=== PATIENT | female | born 1960 | race Caucasian/White ===

== ENCOUNTER 2016-03-05 10:00 | Outpatient (CLI) | payer OTHER | END 2016-03-05 10:01 | disposition home or self-care (01) | DX: I48.91 Unspecified atrial fibrillation (principal); Z79.01 Long term (current) use of anticoagulants; I69.90 Unspecified sequelae of unspecified cerebrovascular disease ==

== ENCOUNTER 2016-03-27 10:16 | Outpatient (CLI) | payer OTHER | END 2016-03-27 10:17 | disposition home or self-care (01) | DX: Z12.31 Encounter for screening mammogram for malignant neoplasm of breast (principal); Z80.3 Family history of malignant neoplasm of breast; Z98.82 Breast implant status ==

== ENCOUNTER 2016-03-31 08:00 | Outpatient (CLI) | payer OTHER | END 2016-03-31 08:01 | DX: E24.9 Cushing's syndrome, unspecified (principal); D58.2 Other hemoglobinopathies; R71.8 Other abnormality of red blood cells; E03.9 Hypothyroidism, unspecified; Z79.899 Other long term (current) drug therapy ==

== ENCOUNTER 2016-04-16 09:14 | Outpatient (CLI) | payer OTHER | END 2016-04-16 09:15 | disposition home or self-care (01) | DX: I48.91 Unspecified atrial fibrillation (principal); I69.90 Unspecified sequelae of unspecified cerebrovascular disease; Z79.01 Long term (current) use of anticoagulants ==

== ENCOUNTER 2016-05-20 11:32 | Outpatient (CLI) | payer OTHER | END 2016-05-20 11:33 | disposition home or self-care (01) | DX: I48.91 Unspecified atrial fibrillation (principal); Z79.01 Long term (current) use of anticoagulants; I69.90 Unspecified sequelae of unspecified cerebrovascular disease ==

== ENCOUNTER 2016-06-18 09:33 | Outpatient (CLI) | payer OTHER | END 2016-06-18 09:34 | disposition home or self-care (01) | DX: M85.80 Other specified disorders of bone density and structure, unspecified site (principal); I48.91 Unspecified atrial fibrillation; Z79.01 Long term (current) use of anticoagulants; I69.90 Unspecified sequelae of unspecified cerebrovascular disease ==

== ENCOUNTER 2016-07-15 10:12 | Outpatient (CLI) | payer OTHER | END 2016-07-15 10:13 | disposition home or self-care (01) | LOC: LAB 10:12 | PROVIDERS: ATTEND Internal Medicine | DX: I48.91 Unspecified atrial fibrillation (principal) | CPT/HCPCS: 85610 ==

== ENCOUNTER 2016-07-20 21:49 | Emergency (ER) | payer OTHER ==
[2016-07-20] MEDS ORDERED: diphenhydrAMINE 25 MG CAPSULE PO STA (22:08)
[2016-07-20] MEDS ORDERED: predniSONE 20 MG TABLET PO STA (22:08)
--- NOTE | 2016-07-20 22:13 | ED Physician Documentation ---
PD HPI SKIN - Stated complaint Stated Complaint: POSS HORNET STING - Chief complaint Chief Complaint: Wound - History obtained from History obtained from: Patient - History of Present Illness Timing - onset: Other (Stung by a wasp or hornet to the dorsum of the left hand approximately 4 o'clock today at home with increasing redness and swelling throughout the left arm but no systemic symptoms, throat tightness, or wheezing. No prior history of anaphylaxis.) Review of Systems Constitutional: reports: Reviewed and negative Eyes: reports: Reviewed and negative Throat: reports: Reviewed and negative Cardiac: reports: Reviewed and negative PD PAST MEDICAL HISTORY - Past Medical History Past Medical History: Yes Cardiovascular: Atrial fibrillation - Past Surgical History Past Surgical History: No - Present Medications Home Medications: Ambulatory Orders Medication Instructions Recorded Confirmed Atenolol 12.5 mg PO DAILY 07/20/16 07/20/16 Warfarin Sodium [Coumadin] 1 tab PO DAILY 07/20/16 07/20/16 predniSONE [Deltasone] 60 mg PO DAILY 5 Days 07/20/16 - Allergies Allergies/Adverse Reactions: Allergies Allergy/AdvReac Type Severity Reaction Status Date / Time codeine AdvReac Nausea Verified 07/20/16 21:55 - Social History Does the pt smoke?: No Smoking Status: Never smoker Does the pt drink ETOH?: Yes ETOH Use: Wine Does the pt have substance abuse?: No - Immunizations Immunizations are current?: No Immunizations: TDAP >10years/unknown - POLST Patient has POLST: No PD ED PE NORMAL - Vitals Vital signs reviewed: Yes - General General: Alert and oriented X 3, No acute distress - HEENT HEENT: Pharynx benign - Extremities Extremities: Other (She is edema and swelling throughout the left arm emanating from the dorsum of the hand up to the elbow area without limited range of motion or tenderness.) - Neuro Neuro: Alert and oriented X 3, Normal speech - Psych Psych: Normal mood, Normal affect Results - Vitals Vitals: Vital Signs - 24 hr 07/20/16 21:56 Temperature 36.9 C Heart Rate 80 Respiratory 16 Rate Blood Pressure 141/83 H O2 Saturation 98 Oxygen O2 Source Room air PD MEDICAL DECISION MAKING - ED course ED course: She is a significant localized allergic reaction to Hymenoptera sting without evidence of anaphylaxis. She's treated with steroid and Benadryl. Departure - Departure Disposition: 01 Home, Self Care Clinical Impression: Toxic reaction to hornets, wasps and bees Qualifiers: Encounter type: initial encounter Injury intent: accidental or unintentional Qualified Code(s): T63.451A - Toxic effect of venom of hornets, accidental ( unintentional), initial encounter; T63.441A - Toxic effect of venom of bees, accidental (unintentional), initial encounter; T63.461A - Toxic effect of venom of wasps, accidental (unintentional), initial encounter Condition: Good Record reviewed to determine appropriate education?: Yes Instructions: ED Bite Sting Insect Local Allergic React Prescriptions: predniSONE [Deltasone] 60 mg PO DAILY 5 Days Comments: Use benadryl as needed as per package instructions return if worse Your blood pressure was elevated today on check in to the emergency department. This does not mean that you have hypertension, it is a common phenomenon to check into the emergency department and have elevated blood pressure. I recommend that you see your primary care physician within the week to have it rechecked when you're feeling better.
[2016-07-20] MEDS ORDERED: diphenhydrAMINE 25 MG CAPSULE PO ONE (22:14)
[2016-07-20] MEDS ORDERED: predniSONE 20 MG TABLET ONE (22:14)
[2016-07-20 22:42] VITALS: BP 135/79
== END 2016-07-20 22:36 | disposition home or self-care (01) ==
LOC: ED 21:49
DX: T63.451A Toxic effect of venom of hornets, accidental (unintentional), initial encounter (principal); Y92.009 Unspecified place in unspecified non-institutional (private) residence as the place of occurrence of the external cause; R03.0 Elevated blood-pressure reading, without diagnosis of hypertension; I48.91 Unspecified atrial fibrillation; Z79.01 Long term (current) use of anticoagulants
CPT/HCPCS: 99282; 99283; A9270; J7512

== ENCOUNTER 2016-07-22 07:43 | Outpatient (CLI) | payer OTHER | END 2016-07-22 07:44 | disposition home or self-care (01) | LOC: LAB.F 07:43 | PROVIDERS: ATTEND Internal Medicine | DX: I48.91 Unspecified atrial fibrillation (principal) | CPT/HCPCS: 85610 ==

== ENCOUNTER 2016-07-29 10:14 | Outpatient (CLI) | payer OTHER | END 2016-07-29 10:15 | disposition home or self-care (01) | LOC: LAB 10:14 | PROVIDERS: ATTEND Internal Medicine | DX: I48.91 Unspecified atrial fibrillation (principal) | CPT/HCPCS: 85610 ==

== ENCOUNTER 2016-08-04 14:33 | Outpatient (CLI) | payer OTHER | END 2016-08-04 14:34 | disposition home or self-care (01) | LOC: LAB.F 14:33 | PROVIDERS: ATTEND Internal Medicine | DX: I48.91 Unspecified atrial fibrillation (principal) | CPT/HCPCS: 85610 ==

== ENCOUNTER 2016-09-10 11:55 | Outpatient (CLI) | payer OTHER | END 2016-09-10 11:56 | disposition home or self-care (01) | LOC: LAB.F 11:55 | PROVIDERS: ATTEND Internal Medicine | DX: I48.91 Unspecified atrial fibrillation (principal) | CPT/HCPCS: 85610 ==

== ENCOUNTER 2016-10-10 13:48 | Outpatient (CLI) | payer OTHER | END 2016-10-10 13:49 | disposition home or self-care (01) | LOC: LAB.F 13:48 | PROVIDERS: ATTEND Internal Medicine | DX: I48.91 Unspecified atrial fibrillation (principal); M85.80 Other specified disorders of bone density and structure, unspecified site | CPT/HCPCS: 36415; 82306; 85610 ==

== ENCOUNTER → 2016-10-13 | Outpatient (CLI) | payer OTHER | LOC: LAB.F 08:00 | PROVIDERS: ATTEND Internal Medicine | DX: I48.91 Unspecified atrial fibrillation (principal); Z79.01 Long term (current) use of anticoagulants; I69.90 Unspecified sequelae of unspecified cerebrovascular disease | CPT/HCPCS: 85610 ==

== ENCOUNTER 2016-10-27 13:56 | Outpatient (CLI) | payer OTHER | END 2016-10-27 13:57 | disposition home or self-care (01) | LOC: LAB.F 13:56 | PROVIDERS: ATTEND Internal Medicine | DX: I48.91 Unspecified atrial fibrillation (principal); Z79.01 Long term (current) use of anticoagulants; I69.90 Unspecified sequelae of unspecified cerebrovascular disease | CPT/HCPCS: 36415; 84443; 84481; 85610 ==

== ENCOUNTER 2016-11-25 14:37 | Outpatient (CLI) | payer OTHER | END 2016-11-25 14:38 | disposition home or self-care (01) | LOC: LAB.F 14:37 | PROVIDERS: ATTEND Naturopath | DX: E03.9 Hypothyroidism, unspecified (principal); Z79.899 Other long term (current) drug therapy | CPT/HCPCS: 36415; 84443; 84481 ==

== ENCOUNTER 2016-12-02 14:11 | Outpatient (CLI) | payer OTHER ==
[2016-12-02 18:12] LABS: PT - PROTHROMBIN TIME 51.9 secs (9.9-12.6)
[2016-12-02 18:38] LABS: INR 4.5 (0.8-1.2)
== END 2016-12-02 14:12 | disposition home or self-care (01) ==
LOC: LAB.F 14:11
PROVIDERS: ATTEND Internal Medicine
DX: I48.91 Unspecified atrial fibrillation (principal); Z79.01 Long term (current) use of anticoagulants; I69.90 Unspecified sequelae of unspecified cerebrovascular disease
CPT/HCPCS: 36415; 85610

== ENCOUNTER 2016-12-08 10:54 | Outpatient (CLI) | payer OTHER | END 2016-12-08 10:55 | disposition home or self-care (01) | LOC: LAB.F 10:54 | PROVIDERS: ATTEND Internal Medicine | DX: I48.91 Unspecified atrial fibrillation (principal); Z79.01 Long term (current) use of anticoagulants; I69.90 Unspecified sequelae of unspecified cerebrovascular disease | CPT/HCPCS: 85610 ==

== ENCOUNTER 2016-12-15 07:50 | Outpatient (CLI) | payer OTHER | END 2016-12-15 07:51 | disposition home or self-care (01) | LOC: LAB.F 07:50 | PROVIDERS: ATTEND Internal Medicine | DX: I48.91 Unspecified atrial fibrillation (principal); Z79.01 Long term (current) use of anticoagulants; I69.90 Unspecified sequelae of unspecified cerebrovascular disease | CPT/HCPCS: 85610 ==

== ENCOUNTER 2016-12-30 08:53 | Outpatient (CLI) | payer OTHER | END 2016-12-30 08:54 | disposition home or self-care (01) | LOC: LAB.F 08:53 | PROVIDERS: ATTEND Internal Medicine | DX: I48.91 Unspecified atrial fibrillation (principal); Z79.01 Long term (current) use of anticoagulants; I69.90 Unspecified sequelae of unspecified cerebrovascular disease | CPT/HCPCS: 85610 ==

== ENCOUNTER 2017-01-14 10:09 | Outpatient (CLI) | payer OTHER | END 2017-01-14 10:10 | disposition home or self-care (01) | LOC: LAB 10:09 | PROVIDERS: ATTEND Internal Medicine | DX: I48.91 Unspecified atrial fibrillation (principal); Z79.01 Long term (current) use of anticoagulants; I69.90 Unspecified sequelae of unspecified cerebrovascular disease | CPT/HCPCS: 85610 ==

== ENCOUNTER 2017-02-06 08:00 | Outpatient (CLI) | payer OTHER | END 2017-02-06 08:01 | disposition home or self-care (01) | LOC: LAB.F 08:00 | PROVIDERS: ATTEND Internal Medicine | DX: I48.91 Unspecified atrial fibrillation (principal); Z79.01 Long term (current) use of anticoagulants; I69.90 Unspecified sequelae of unspecified cerebrovascular disease | CPT/HCPCS: 85610 ==

== ENCOUNTER 2017-02-27 09:23 | Outpatient (CLI) | payer BC, OTHER | END 2017-02-27 09:24 | disposition home or self-care (01) | LOC: LAB 09:23 | PROVIDERS: ATTEND Internal Medicine | DX: I48.91 Unspecified atrial fibrillation (principal); Z79.01 Long term (current) use of anticoagulants; I69.90 Unspecified sequelae of unspecified cerebrovascular disease | CPT/HCPCS: 85610 ==

== ENCOUNTER 2017-03-02 16:39 | Outpatient (CLI) | payer BC ==
--- NOTE | 2017-03-03 10:31 | XRAY Report ---
DATE OF SERVICE: 03/02/2017 LEFT HIP AND PELVIS: 03/02/2017 CLINICAL INDICATION: Pain. FINDINGS: Frontal view of the hips and pelvis and frogleg lateral view of the left hip demonstrate mild left hip osteoarthritis. There is no evidence of acute fracture or dislocation. No radiopaque foreign body is seen in the soft tissues. IMPRESSION: Mild left hip osteoarthritis. TD: 03/03/2017 11:30
--- NOTE | 2017-03-03 10:32 | XRAY Report ---
DATE OF SERVICE: 03/02/2017 THREE-VIEW LUMBAR SPINE: 03/02/2017 CLINICAL INDICATION: Pain. FINDINGS: AP, lateral, coned-down views of the lumbar spine demonstrate moderate degenerative disk and facet disease. Disk space narrowing is worst at L3-L4. There is no evidence of compression fracture or subluxation. IMPRESSION: Moderate degenerative changes, worst at L3-4. TD: 03/03/2017 11:31
== END 2017-03-02 16:40 | disposition home or self-care (01) ==
LOC: DI 16:39
PROVIDERS: ATTEND Physician Assistant Medical
DX: M51.36 Other intervertebral disc degeneration, lumbar region (principal); M47.896 Other spondylosis, lumbar region; M16.12 Unilateral primary osteoarthritis, left hip
CPT/HCPCS: 72100

== ENCOUNTER 2017-03-12 15:34 | Outpatient (CLI) | payer BC | END 2017-03-12 15:35 | disposition home or self-care (01) | LOC: LAB.F 15:34 | PROVIDERS: ATTEND Internal Medicine | DX: I48.91 Unspecified atrial fibrillation (principal); Z79.01 Long term (current) use of anticoagulants; I69.90 Unspecified sequelae of unspecified cerebrovascular disease | CPT/HCPCS: 85610 ==

== ENCOUNTER 2017-03-25 10:35 | Outpatient (CLI) | payer BC | END 2017-03-25 10:36 | disposition home or self-care (01) | LOC: LAB.F 10:35 | PROVIDERS: ATTEND Internal Medicine | DX: I48.91 Unspecified atrial fibrillation (principal); Z79.01 Long term (current) use of anticoagulants; I69.90 Unspecified sequelae of unspecified cerebrovascular disease | CPT/HCPCS: 85610 ==

== ENCOUNTER 2017-04-01 10:58 | Outpatient (CLI) | payer BC | END 2017-04-01 10:59 | disposition home or self-care (01) | LOC: LAB.F 10:58 | PROVIDERS: ATTEND Internal Medicine | DX: I48.91 Unspecified atrial fibrillation (principal); I69.90 Unspecified sequelae of unspecified cerebrovascular disease; Z79.01 Long term (current) use of anticoagulants | CPT/HCPCS: 85610 ==

== ENCOUNTER 2017-04-08 10:55 | Outpatient (CLI) | payer BC | END 2017-04-08 10:56 | disposition home or self-care (01) | LOC: LAB.F 10:55 | PROVIDERS: ATTEND Internal Medicine | DX: I48.91 Unspecified atrial fibrillation (principal); Z79.01 Long term (current) use of anticoagulants; I69.90 Unspecified sequelae of unspecified cerebrovascular disease | CPT/HCPCS: 85610 ==

== ENCOUNTER 2017-04-16 14:53 | Outpatient (CLI) | payer BC | END 2017-04-16 14:54 | disposition home or self-care (01) | LOC: LAB.F 14:53 | PROVIDERS: ATTEND Internal Medicine | DX: I48.91 Unspecified atrial fibrillation (principal); Z79.01 Long term (current) use of anticoagulants; I69.90 Unspecified sequelae of unspecified cerebrovascular disease | CPT/HCPCS: 85610 ==

== ENCOUNTER 2017-04-29 10:16 | Outpatient (CLI) | payer BC | END 2017-04-29 10:17 | disposition home or self-care (01) | LOC: LAB 10:16 | PROVIDERS: ATTEND Internal Medicine | DX: I48.91 Unspecified atrial fibrillation (principal); I69.90 Unspecified sequelae of unspecified cerebrovascular disease; Z79.01 Long term (current) use of anticoagulants | CPT/HCPCS: 85610 ==

== ENCOUNTER 2017-05-12 15:20 | Outpatient (CLI) | payer BC | END 2017-05-12 15:21 | disposition home or self-care (01) | LOC: LAB.F 15:20 | PROVIDERS: ATTEND Internal Medicine | DX: I48.91 Unspecified atrial fibrillation (principal); I69.90 Unspecified sequelae of unspecified cerebrovascular disease; Z79.01 Long term (current) use of anticoagulants | CPT/HCPCS: 85610 ==

== ENCOUNTER 2017-05-25 08:00 | Outpatient (CLI) | payer BC | END 2017-05-25 08:01 | LOC: LAB.F 08:00 | PROVIDERS: ATTEND Internal Medicine | DX: I48.91 Unspecified atrial fibrillation (principal); Z79.01 Long term (current) use of anticoagulants; I69.90 Unspecified sequelae of unspecified cerebrovascular disease | CPT/HCPCS: 85610 ==

== ENCOUNTER 2017-06-09 12:10 | Outpatient (CLI) | payer BC | END 2017-06-09 12:11 | disposition home or self-care (01) | LOC: LAB.F 12:10 | PROVIDERS: ATTEND Internal Medicine | DX: I48.91 Unspecified atrial fibrillation (principal); Z79.01 Long term (current) use of anticoagulants; I69.90 Unspecified sequelae of unspecified cerebrovascular disease | CPT/HCPCS: 85610 ==

== ENCOUNTER 2017-06-17 10:34 | Outpatient (CLI) | payer BC | END 2017-06-17 10:35 | disposition home or self-care (01) | LOC: LAB.F 10:34 | PROVIDERS: ATTEND Internal Medicine | DX: I48.91 Unspecified atrial fibrillation (principal); Z79.01 Long term (current) use of anticoagulants; I69.90 Unspecified sequelae of unspecified cerebrovascular disease | CPT/HCPCS: 85610 ==

== ENCOUNTER 2017-07-01 14:56 | Outpatient (CLI) | payer BC ==
[2017-07-01 17:53] LABS: ALT ALANINE AMINOTRANSFERASE 19 IU/L (10-60); AST ASPARTATE AMINOTRANSFERASE 19 IU/L (10-42)
== END 2017-07-01 14:57 | disposition home or self-care (01) ==
LOC: LAB.F 14:56
PROVIDERS: ATTEND Naturopath
DX: I48.91 Unspecified atrial fibrillation (principal); Z79.01 Long term (current) use of anticoagulants; I69.90 Unspecified sequelae of unspecified cerebrovascular disease; M85.80 Other specified disorders of bone density and structure, unspecified site; E03.9 Hypothyroidism, unspecified; Z79.899 Other long term (current) drug therapy
CPT/HCPCS: 36415; 82306; 84443; 84450; 84460; 84481; 85610

== ENCOUNTER 2017-07-10 14:16 | Outpatient (CLI) | payer BC | END 2017-07-10 14:17 | disposition home or self-care (01) | LOC: LAB.F 14:16 | PROVIDERS: ATTEND Internal Medicine | DX: I48.91 Unspecified atrial fibrillation (principal); I69.90 Unspecified sequelae of unspecified cerebrovascular disease; Z79.01 Long term (current) use of anticoagulants | CPT/HCPCS: 85610 ==

== ENCOUNTER 2017-07-20 13:15 | Outpatient (CLI) | payer BC | END 2017-07-20 13:16 | disposition home or self-care (01) | LOC: LAB.F 13:15 | PROVIDERS: ATTEND Internal Medicine | DX: I48.91 Unspecified atrial fibrillation (principal); I69.90 Unspecified sequelae of unspecified cerebrovascular disease; Z79.01 Long term (current) use of anticoagulants | CPT/HCPCS: 85610 ==

== ENCOUNTER 2017-08-04 09:10 | Outpatient (CLI) | payer BC | END 2017-08-04 09:11 | disposition home or self-care (01) | LOC: LAB.F 09:10 | PROVIDERS: ATTEND Internal Medicine | DX: I48.91 Unspecified atrial fibrillation (principal); Z79.01 Long term (current) use of anticoagulants; I69.90 Unspecified sequelae of unspecified cerebrovascular disease | CPT/HCPCS: 85610 ==

== ENCOUNTER 2017-09-15 09:49 | Outpatient (CLI) | payer BC | END 2017-09-15 09:50 | disposition home or self-care (01) | LOC: LAB.F 09:49 | PROVIDERS: ATTEND Internal Medicine | DX: I48.91 Unspecified atrial fibrillation (principal); Z79.01 Long term (current) use of anticoagulants; I69.90 Unspecified sequelae of unspecified cerebrovascular disease | CPT/HCPCS: 85610 ==

== ENCOUNTER 2017-09-29 10:10 | Outpatient (CLI) | payer BC | END 2017-09-29 10:11 | disposition home or self-care (01) | LOC: LAB.F 10:10 | PROVIDERS: ATTEND Internal Medicine | DX: I48.91 Unspecified atrial fibrillation (principal); Z79.01 Long term (current) use of anticoagulants; I69.90 Unspecified sequelae of unspecified cerebrovascular disease | CPT/HCPCS: 85610 ==

== ENCOUNTER 2017-09-30 08:17 | Outpatient (CLI) | payer BC ==
--- NOTE | 2017-09-30 10:59 | Ultrasound Report ---
Procedure Date: 09/30/2017 Accession Number: [id number] / [id number] Procedure: US - Pelvic w/Transvaginal CPT Code: FULL RESULT: EXAM: PELVIC ULTRASOUND EXAM DATE: 09/30/2017 09:45 AM. CLINICAL HISTORY: History of ovarian cyst. COMPARISON: None. TECHNIQUE: Realtime transabdominal pelvic scan performed to identify the uterus and adnexa and as an overview of other pelvic structures, followed by transvaginal scan to provide greater detail of the uterus and adnexa, with static image documentation. FINDINGS: Uterus: 5.8 x 3.1 x 2.4 cm, volume 23 cc. Anteverted position. Normal overall size and echotexture. Masses: None. Endometrium: 2 mm. Normal. Cervix: Subcentimeter nabothian cysts. Right Ovary: 4.4 x 2.4 x 2.8 cm, volume 15 cc. Preserved blood flow by color Doppler. Simple appearing cyst measuring 3.1 x 2.5 x 2.5 cm. Left Ovary: 2.2 x 2.6 x 1.7 cm, volume 5 cc. Simple appearing cyst measures 1.2 x 0.8 x 0.7 cm. Free Fluid: None. Other: None. IMPRESSION: Bilateral adnexal cyst in the postmenopausal patient measuring up to 3.1 cm. Recommend annual follow-up ultrasound to resolution. RADIA
== END 2017-09-30 08:18 | disposition home or self-care (01) ==
LOC: DI 08:17
PROVIDERS: ATTEND Physician Assistant Medical
DX: N83.292 Other ovarian cyst, left side (principal); N83.291 Other ovarian cyst, right side
CPT/HCPCS: 76830; 76856

== ENCOUNTER 2017-10-13 14:04 | Outpatient (CLI) | payer BC | END 2017-10-13 14:05 | disposition home or self-care (01) | LOC: LAB.F 14:04 | PROVIDERS: ATTEND Internal Medicine | DX: I48.91 Unspecified atrial fibrillation (principal); Z79.01 Long term (current) use of anticoagulants; I69.90 Unspecified sequelae of unspecified cerebrovascular disease | CPT/HCPCS: 85610 ==

== ENCOUNTER 2017-11-19 08:00 | Outpatient (CLI) | payer BC ==
[2017-11-19 10:36] LABS: BASOPHILS % (AUTO) 1.3 %; EOSINOPHILS # (AUTO) 0.1 10^3/uL (0.0-0.7); EOSINOPHILS % (AUTO) 2.5 %; LYMPHOCYTES # (AUTO) 1.2 10^3/uL (1.5-3.5); LYMPHOCYTES % (AUTO) 30.2 %; MEAN CORPUSCULAR HEMOGLOBIN 31.6 pg (27.0-31.0); MEAN CORPUSCULAR HGB CONC 34.3 g/dL (32.0-36.0); MEAN CORPUSCULAR VOLUME 92.2 fL (81.0-99.0); MEAN PLATELET VOLUME 8.9 fL (7.9-10.8); MONOCYTES # (AUTO) 0.4 10^3/uL (0.0-1.0); MONOCYTES % (AUTO) 9.7 %; NEUTROPHILS # (AUTO) 2.2 10^3/uL (1.5-6.6); NEUTROPHILS % (AUTO) 56.3 %; PLT - PLATELET COUNT 223 10^3/uL (130-450); RED BLOOD COUNT 4.73 10^6/uL (4.20-5.40); RED CELL DISTRIBUTION WIDTH 13.3 % (12.0-15.0); WHITE BLOOD COUNT 3.8 x10^3/uL (4.8-10.8)
[2017-11-19 10:54] LABS: ALBUMIN 4.5 g/dL (3.2-5.5); ALKALINE PHOSPHATASE 73 IU/L (42-121); ALT ALANINE AMINOTRANSFERASE 19 IU/L (10-60); AST ASPARTATE AMINOTRANSFERASE 20 IU/L (10-42); BILIRUBIN,TOTAL 0.8 mg/dL (0.2-1.0); BUN - BLOOD UREA NITROGEN 9 mg/dL (6-20); CALCIUM 9.3 mg/dL (8.5-10.3); CARBON DIOXIDE - CO2 27 mmol/L (21-32); CHLORIDE 103 mmol/L (101-111); CHOL/HDL RATIO 1.8 (<4.4); CHOLESTEROL 140 mg/dL; CREATININE 0.7 mg/dL (0.4-1.0); GFR - MDRD 86 (>89); GLUCOSE 93 mg/dL (70-100); HDL CHOLESTEROL 77 mg/dL; SODIUM 139 mmol/L (135-145); TOTAL PROTEIN 6.8 g/dL (6.7-8.2)
[2017-11-19 11:39] LABS: LDL CHOLESTEROL,DIRECT 50 mg/dL; LDLD/HDL RATIO 0.6 (<4.4)
== END 2017-11-19 08:01 | disposition home or self-care (01) ==
LOC: LAB.F 08:00
PROVIDERS: ATTEND Physician Assistant Medical
DX: Z79.899 Other long term (current) drug therapy (principal); I48.91 Unspecified atrial fibrillation
CPT/HCPCS: 36415; 80053; 80061; 83721; 85025

== ENCOUNTER 2017-11-25 09:52 | Outpatient (CLI) | payer BC | END 2017-11-25 09:53 | disposition home or self-care (01) | LOC: LAB 09:52 | PROVIDERS: ATTEND Internal Medicine | DX: I48.91 Unspecified atrial fibrillation (principal); Z79.01 Long term (current) use of anticoagulants; I69.90 Unspecified sequelae of unspecified cerebrovascular disease | CPT/HCPCS: 85610 ==

== ENCOUNTER 2018-01-14 10:55 | Outpatient (CLI) | payer BC | END 2018-01-14 10:56 | disposition home or self-care (01) | LOC: LAB.F 10:55 | PROVIDERS: ATTEND Naturopath | DX: E03.9 Hypothyroidism, unspecified (principal); M85.80 Other specified disorders of bone density and structure, unspecified site | CPT/HCPCS: 36415; 82306; 84443; 84481 ==

== ENCOUNTER 2018-01-26 10:13 | Outpatient (CLI) | payer BC | END 2018-01-26 10:14 | disposition home or self-care (01) | LOC: LAB.F 10:13 | PROVIDERS: ATTEND Internal Medicine | DX: I48.91 Unspecified atrial fibrillation (principal); Z79.01 Long term (current) use of anticoagulants; I69.90 Unspecified sequelae of unspecified cerebrovascular disease | CPT/HCPCS: 85610 ==

== ENCOUNTER 2018-02-25 10:09 | Outpatient (CLI) | payer BC ==
[2018-02-25 10:27] LABS: BASOPHILS % (AUTO) 0.9 %; EOSINOPHILS # (AUTO) 0.1 10^3/uL (0.0-0.7); EOSINOPHILS % (AUTO) 2.4 %; HGB - HEMOGLOBIN 14.9 g/dL (12.0-16.0); LYMPHOCYTES # (AUTO) 1.2 10^3/uL (1.5-3.5); LYMPHOCYTES % (AUTO) 23.8 %; MEAN CORPUSCULAR HEMOGLOBIN 31.7 pg (27.0-31.0); MEAN CORPUSCULAR HGB CONC 34.3 g/dL (32.0-36.0); MEAN CORPUSCULAR VOLUME 92.6 fL (81.0-99.0); MEAN PLATELET VOLUME 8.4 fL (7.9-10.8); MONOCYTES # (AUTO) 0.4 10^3/uL (0.0-1.0); NEUTROPHILS # (AUTO) 3.4 10^3/uL (1.5-6.6); NEUTROPHILS % (AUTO) 64.9 %; PLT - PLATELET COUNT 228 10^3/uL (130-450); RED BLOOD COUNT 4.68 10^6/uL (4.20-5.40); RED CELL DISTRIBUTION WIDTH 12.9 % (12.0-15.0); WHITE BLOOD COUNT 5.2 x10^3/uL (4.8-10.8)
[2018-02-26 12:28] LABS: HEPATITIS C ANTIBODY NON-REACTIVE (NON-REACTIVE)
== END 2018-02-25 10:10 | disposition home or self-care (01) ==
LOC: LAB 10:09
PROVIDERS: ATTEND Physician Assistant Medical
DX: R68.89 Other general symptoms and signs (principal); Z72.89 Other problems related to lifestyle; I48.91 Unspecified atrial fibrillation; Z79.01 Long term (current) use of anticoagulants; I69.90 Unspecified sequelae of unspecified cerebrovascular disease
CPT/HCPCS: 36415; 85025; 85610; 86803

== ENCOUNTER 2018-03-25 13:41 | Outpatient (CLI) | payer BC | END 2018-03-25 13:42 | disposition home or self-care (01) | LOC: LAB.F 13:41 | PROVIDERS: ATTEND Internal Medicine | DX: I48.91 Unspecified atrial fibrillation (principal); Z79.01 Long term (current) use of anticoagulants; I69.90 Unspecified sequelae of unspecified cerebrovascular disease | CPT/HCPCS: 36415; 85610 ==

== ENCOUNTER 2018-05-06 14:33 | Outpatient (CLI) | payer BC | END 2018-05-06 14:34 | disposition home or self-care (01) | LOC: LAB.F 14:33 | PROVIDERS: ATTEND Internal Medicine | DX: I48.91 Unspecified atrial fibrillation (principal); Z79.01 Long term (current) use of anticoagulants | CPT/HCPCS: 85610 ==

== ENCOUNTER 2018-05-20 08:00 | Outpatient (CLI) | payer BC | END 2018-05-20 23:59 | disposition home or self-care (01) | LOC: LAB.F 08:00 | PROVIDERS: ATTEND Naturopath | DX: E03.9 Hypothyroidism, unspecified (principal) | CPT/HCPCS: 36415; 84443; 84481 ==

== ENCOUNTER 2018-06-07 10:31 | Outpatient (CLI) | payer BC | END 2018-06-07 10:32 | disposition home or self-care (01) | LOC: LAB.F 10:31 | PROVIDERS: ATTEND Internal Medicine | DX: I48.91 Unspecified atrial fibrillation (principal); Z79.01 Long term (current) use of anticoagulants | CPT/HCPCS: 85610 ==

== ENCOUNTER 2018-08-04 11:06 | Outpatient (CLI) | payer BC | END 2018-08-04 11:07 | disposition home or self-care (01) | LOC: LAB 11:06 | PROVIDERS: ATTEND Internal Medicine | DX: I48.91 Unspecified atrial fibrillation (principal); Z79.01 Long term (current) use of anticoagulants | CPT/HCPCS: 85610 ==

== ENCOUNTER 2018-08-10 14:08 | Outpatient (CLI) | payer BC | END 2018-08-10 14:09 | disposition home or self-care (01) | LOC: LAB.F 14:08 | PROVIDERS: ATTEND Internal Medicine | DX: I48.91 Unspecified atrial fibrillation (principal); Z79.01 Long term (current) use of anticoagulants | CPT/HCPCS: 85610 ==

== ENCOUNTER 2018-08-16 11:00 | Outpatient (CLI) | payer BC | END 2018-08-16 11:01 | disposition home or self-care (01) | LOC: LAB.S 11:00 | PROVIDERS: ATTEND Internal Medicine | DX: I48.91 Unspecified atrial fibrillation (principal); Z79.01 Long term (current) use of anticoagulants | CPT/HCPCS: 85610 ==

== ENCOUNTER 2018-08-23 10:41 | Outpatient (CLI) | payer BC | END 2018-08-23 10:42 | disposition home or self-care (01) | LOC: LAB.S 10:41 | PROVIDERS: ATTEND Internal Medicine | DX: I48.91 Unspecified atrial fibrillation (principal); Z79.01 Long term (current) use of anticoagulants | CPT/HCPCS: 85610 ==

== ENCOUNTER 2018-08-30 10:24 | Outpatient (CLI) | payer BC | END 2018-08-30 10:25 | disposition home or self-care (01) | LOC: LAB.S 10:24 | PROVIDERS: ATTEND Internal Medicine | DX: I48.91 Unspecified atrial fibrillation (principal); Z79.01 Long term (current) use of anticoagulants | CPT/HCPCS: 85610 ==

== ENCOUNTER 2018-09-17 | Outpatient (CLI) | payer BC | END 2018-09-17 11:00 | disposition home or self-care (01) ==

== ENCOUNTER 2018-09-24 14:00 | Outpatient (CLI) | payer BC | END 2018-09-24 14:01 | disposition home or self-care (01) | LOC: LAB.S 14:00 | PROVIDERS: ATTEND Internal Medicine | DX: Z79.01 Long term (current) use of anticoagulants (principal); I48.91 Unspecified atrial fibrillation | CPT/HCPCS: 85610 ==

== ENCOUNTER 2018-09-30 07:57 | Outpatient (CLI) | payer BC | END 2018-09-30 07:58 | disposition home or self-care (01) | LOC: LAB.S 07:57 | DX: E03.9 Hypothyroidism, unspecified (principal) | CPT/HCPCS: 36415; 84443; 84481 ==

== ENCOUNTER 2018-10-01 07:30 | Outpatient (CLI) | payer BC ==
--- NOTE | 2018-10-01 14:45 | Ultrasound Report ---
Reason: OTHER OVARIAN CYST, UNSPECIFIED SIDE Procedure Date: 10/01/2018 Accession Number: [id number] / [id number] Procedure: US - Pelvic w/Transvaginal CPT Code: FULL RESULT: EXAM: PELVIC ULTRASOUND EXAM DATE: 10/01/2018 08:31 AM. CLINICAL HISTORY: Follow-up bilateral ovarian cystic lesions, postmenopausal. COMPARISON: PELVIC W/TRANSVAGINAL 09/30/2017 8:33 AM. TECHNIQUE: Realtime transabdominal pelvic scan performed to identify the uterus and adnexa and as an overview of other pelvic structures, followed by transvaginal scan to provide greater detail of the uterus and adnexa, with static image documentation. FINDINGS: Uterus: 5.5 x 2.6 x 3.3 cm, volume 25 cc. Anteverted position. Normal overall size and echotexture. Masses: None. Endometrium: 2 mm. Normal. Cervix: Cervical nabothian cysts measure up to 1.0 cm. Right Ovary: 3.3 x 2.8 x 3.2 cm, volume 15.5 cc. A simple cyst measures 2.9 x 2.9 x 2.8 cm. Previously measured 3.1 cm unchanged. No evidence for torsion. Left Ovary: 2.9 x 1.5 x 2.0 cm, volume 4.6 cc. A small simple cyst measures 1.3 x 0.9 x 0.9 cm. Previously measured 1.2 cm unchanged. No evidence for torsion. Free Fluid: None. Other: None. IMPRESSION: 1. Bilateral simple ovarian cysts measuring 2.9 cm on the right and 1.3 cm on the left, unchanged. 2. Normal endometrium. RADIA
== END 2018-10-01 07:31 | disposition home or self-care (01) ==
LOC: DI 07:30
PROVIDERS: ATTEND Internal Medicine
DX: N83.292 Other ovarian cyst, left side (principal); N83.291 Other ovarian cyst, right side; I48.91 Unspecified atrial fibrillation; Z79.01 Long term (current) use of anticoagulants
CPT/HCPCS: 76830; 76856; 85610

== ENCOUNTER 2018-10-13 12:37 | Outpatient (CLI) | payer BC | END 2018-10-13 23:59 | disposition home or self-care (01) | LOC: LAB.N 12:37 | PROVIDERS: ATTEND Internal Medicine | DX: I48.91 Unspecified atrial fibrillation (principal); Z79.01 Long term (current) use of anticoagulants | CPT/HCPCS: 85610 ==

== ENCOUNTER 2018-10-29 13:29 | Outpatient (CLI) | payer BC | END 2018-10-29 13:30 | disposition home or self-care (01) | LOC: LAB.S 13:29 | PROVIDERS: ATTEND Internal Medicine | DX: Z79.01 Long term (current) use of anticoagulants (principal); I48.91 Unspecified atrial fibrillation | CPT/HCPCS: 85610 ==

== ENCOUNTER 2018-11-04 11:11 | Outpatient (CLI) | payer BC | END 2018-11-04 11:12 | disposition home or self-care (01) | LOC: LAB.S 11:11 | PROVIDERS: ATTEND Internal Medicine | DX: Z79.01 Long term (current) use of anticoagulants (principal); I48.91 Unspecified atrial fibrillation | CPT/HCPCS: 85610 ==

== ENCOUNTER 2018-11-18 11:04 | Outpatient (CLI) | payer BC | END 2018-11-18 11:05 | disposition home or self-care (01) | LOC: LAB.S 11:04 | PROVIDERS: ATTEND Internal Medicine | DX: I48.91 Unspecified atrial fibrillation (principal); Z79.01 Long term (current) use of anticoagulants | CPT/HCPCS: 85610 ==

== ENCOUNTER 2018-11-25 10:49 | Outpatient (CLI) | payer BC | END 2018-11-25 10:50 | disposition home or self-care (01) | LOC: LAB.S 10:49 | PROVIDERS: ATTEND Internal Medicine | DX: Z79.01 Long term (current) use of anticoagulants (principal); I48.91 Unspecified atrial fibrillation | CPT/HCPCS: 85610 ==

== ENCOUNTER 2018-12-02 11:24 | Outpatient (CLI) | payer BC | END 2018-12-02 11:25 | disposition home or self-care (01) | LOC: LAB.S 11:24 | PROVIDERS: ATTEND Internal Medicine | DX: Z79.01 Long term (current) use of anticoagulants (principal); I48.91 Unspecified atrial fibrillation | CPT/HCPCS: 85610 ==

== ENCOUNTER 2018-12-09 07:51 | Outpatient (CLI) | payer BC | END 2018-12-09 07:52 | disposition home or self-care (01) | LOC: LAB.S 07:51 | PROVIDERS: ATTEND Internal Medicine | DX: Z79.01 Long term (current) use of anticoagulants (principal); I48.91 Unspecified atrial fibrillation | CPT/HCPCS: 85610 ==

== ENCOUNTER 2018-12-16 11:43 | Outpatient (CLI) | payer BC | END 2018-12-16 11:44 | disposition home or self-care (01) | LOC: LAB.S 11:43 | PROVIDERS: ATTEND Internal Medicine | DX: Z79.01 Long term (current) use of anticoagulants (principal); I48.91 Unspecified atrial fibrillation | CPT/HCPCS: 85610 ==

== ENCOUNTER 2019-01-05 13:39 | Outpatient (CLI) | payer BC | END 2019-01-05 13:40 | disposition home or self-care (01) | LOC: LAB.S 13:39 | PROVIDERS: ATTEND Internal Medicine | DX: Z79.01 Long term (current) use of anticoagulants (principal); I48.91 Unspecified atrial fibrillation | CPT/HCPCS: 85610 ==

== ENCOUNTER 2019-01-12 07:58 | Outpatient (CLI) | payer BC | END 2019-01-12 07:59 | disposition home or self-care (01) | LOC: LAB.S 07:58 | PROVIDERS: ATTEND Internal Medicine | DX: I48.91 Unspecified atrial fibrillation (principal); Z79.01 Long term (current) use of anticoagulants | CPT/HCPCS: 85610 ==

== ENCOUNTER 2019-01-20 07:44 | Outpatient (CLI) | payer BC | END 2019-01-20 07:45 | disposition home or self-care (01) | LOC: LAB.S 07:44 | PROVIDERS: ATTEND Internal Medicine | DX: Z79.01 Long term (current) use of anticoagulants (principal); I48.91 Unspecified atrial fibrillation | CPT/HCPCS: 85610 ==

== ENCOUNTER 2019-02-04 10:41 | Outpatient (CLI) | payer BC | END 2019-02-04 10:42 | disposition home or self-care (01) | LOC: LAB.S 10:41 | PROVIDERS: ATTEND Internal Medicine | DX: Z79.01 Long term (current) use of anticoagulants (principal); I48.91 Unspecified atrial fibrillation | CPT/HCPCS: 85610 ==

== ENCOUNTER 2019-02-14 09:09 | Outpatient (CLI) | payer BC | END 2019-02-14 09:10 | disposition home or self-care (01) | LOC: LAB.S 09:09 | PROVIDERS: ATTEND Internal Medicine | DX: Z79.01 Long term (current) use of anticoagulants (principal); I48.91 Unspecified atrial fibrillation | CPT/HCPCS: 85610 ==

== ENCOUNTER 2019-02-21 15:08 | Outpatient (CLI) | payer BC | END 2019-02-21 15:09 | disposition home or self-care (01) | LOC: LAB.S 15:08 | PROVIDERS: ATTEND Internal Medicine | DX: Z79.01 Long term (current) use of anticoagulants (principal); I48.91 Unspecified atrial fibrillation | CPT/HCPCS: 85610 ==

== ENCOUNTER 2019-02-28 13:27 | Outpatient (CLI) | payer BC | END 2019-02-28 13:28 | disposition home or self-care (01) | LOC: LAB.S 13:27 | PROVIDERS: ATTEND Internal Medicine | DX: Z79.01 Long term (current) use of anticoagulants (principal); I48.91 Unspecified atrial fibrillation | CPT/HCPCS: 85610 ==

== ENCOUNTER 2019-03-07 15:26 | Outpatient (CLI) | payer BC | END 2019-03-07 15:27 | disposition home or self-care (01) | LOC: LAB.S 15:26 | PROVIDERS: ATTEND Internal Medicine | DX: Z79.01 Long term (current) use of anticoagulants (principal); I48.91 Unspecified atrial fibrillation | CPT/HCPCS: 85610 ==

== ENCOUNTER 2019-03-14 15:32 | Outpatient (CLI) | payer BC | END 2019-03-14 15:33 | disposition home or self-care (01) | LOC: LAB.S 15:32 | PROVIDERS: ATTEND Internal Medicine | DX: Z79.01 Long term (current) use of anticoagulants (principal); I48.91 Unspecified atrial fibrillation | CPT/HCPCS: 85610 ==

== ENCOUNTER 2019-03-28 12:56 | Outpatient (CLI) | payer BC | END 2019-03-28 12:57 | disposition home or self-care (01) | LOC: LAB.S 12:56 | PROVIDERS: ATTEND Internal Medicine | DX: Z79.01 Long term (current) use of anticoagulants (principal); I48.91 Unspecified atrial fibrillation | CPT/HCPCS: 85610 ==

== ENCOUNTER 2019-04-01 13:19 | Outpatient (CLI) | payer BC ==
[~2019-04-01 13:19] MED LIST: ALBUTEROL NEB 2.5 MG/3 ML INH SCH
== END 2019-04-01 13:20 | disposition home or self-care (01) ==
LOC: RT 13:19
PROVIDERS: ATTEND Nurse Practitioner Family
DX: R06.00 Dyspnea, unspecified (principal)
CPT/HCPCS: 94060

== ENCOUNTER 2019-04-22 13:29 | Outpatient (CLI) | payer BC | END 2019-04-22 13:30 | disposition home or self-care (01) | LOC: LAB.S 13:29 | PROVIDERS: ATTEND Internal Medicine | DX: I48.91 Unspecified atrial fibrillation (principal); Z79.01 Long term (current) use of anticoagulants | CPT/HCPCS: 85610 ==

== ENCOUNTER 2019-05-23 15:48 | Outpatient (CLI) | payer BC ==
[2019-05-23 16:32] LABS: THYROID STIMULATING HORMONE 1.01 uIU/mL (0.34-5.60)
[2019-05-23 16:33] LABS: FREE T3 2.57 pg/mL (2.5-3.9)
[2019-05-23 16:34] LABS: FREE T4 (FREE THYROXINE) 0.92 ng/dL (0.58-1.64)
== END 2019-05-23 15:49 | disposition home or self-care (01) ==
LOC: LAB 15:48
PROVIDERS: ATTEND Internal Medicine
DX: E03.9 Hypothyroidism, unspecified (principal); I48.91 Unspecified atrial fibrillation; Z79.01 Long term (current) use of anticoagulants
CPT/HCPCS: 36415; 84439; 84443; 84481; 85610

== ENCOUNTER 2019-06-21 09:54 | Outpatient (CLI) | payer BC | END 2019-06-21 09:55 | disposition home or self-care (01) | LOC: LAB 09:54 | PROVIDERS: ATTEND Internal Medicine | DX: I48.91 Unspecified atrial fibrillation (principal); Z79.01 Long term (current) use of anticoagulants | CPT/HCPCS: 85610 ==

== ENCOUNTER 2019-07-20 10:14 | Outpatient (CLI) | payer BC | END 2019-07-20 10:15 | disposition home or self-care (01) | LOC: LAB.S 10:14 | PROVIDERS: ATTEND Internal Medicine | DX: I48.91 Unspecified atrial fibrillation (principal); Z79.01 Long term (current) use of anticoagulants | CPT/HCPCS: 85610 ==

== ENCOUNTER 2019-08-18 09:38 | Outpatient (CLI) | payer BC | END 2019-08-18 09:39 | disposition home or self-care (01) | LOC: LAB.S 09:38 | PROVIDERS: ATTEND Internal Medicine | DX: I48.91 Unspecified atrial fibrillation (principal); Z79.01 Long term (current) use of anticoagulants | CPT/HCPCS: 85610 ==

== ENCOUNTER 2019-10-13 16:25 | Outpatient (CLI) | payer BC | END 2019-10-13 16:26 | disposition home or self-care (01) | LOC: LAB.S 16:25 | PROVIDERS: ATTEND Internal Medicine | DX: Z79.01 Long term (current) use of anticoagulants (principal); I48.91 Unspecified atrial fibrillation | CPT/HCPCS: 85610 ==

== ENCOUNTER 2019-11-10 13:10 | Outpatient (CLI) | payer BC | END 2019-11-10 13:11 | disposition home or self-care (01) | LOC: LAB.S 13:10 | PROVIDERS: ATTEND Internal Medicine | DX: I48.91 Unspecified atrial fibrillation (principal); Z79.01 Long term (current) use of anticoagulants | CPT/HCPCS: 85610 ==

== ENCOUNTER 2019-12-07 12:39 | Outpatient (CLI) | payer BC | END 2019-12-07 12:40 | disposition home or self-care (01) | LOC: LAB.S 12:39 | PROVIDERS: ATTEND Internal Medicine | DX: I48.91 Unspecified atrial fibrillation (principal); Z79.01 Long term (current) use of anticoagulants | CPT/HCPCS: 85610 ==

== ENCOUNTER 2020-01-06 10:24 | Outpatient (CLI) | payer BC ==
[2020-01-06 15:39] LABS: THYROID STIMULATING HORMONE 0.81 uIU/mL (0.34-5.60)
[2020-01-06 15:43] LABS: TOTAL T3 0.91 ng/mL (0.87-1.78)
== END 2020-01-06 10:25 | disposition home or self-care (01) ==
LOC: LAB.S 10:24
PROVIDERS: ATTEND Naturopath
DX: E03.9 Hypothyroidism, unspecified (principal); M81.0 Age-related osteoporosis without current pathological fracture
CPT/HCPCS: 36415; 82306; 84443; 84480

== ENCOUNTER 2020-01-09 11:10 | Outpatient (CLI) | payer BC | END 2020-01-09 11:11 | disposition home or self-care (01) | LOC: LAB.S 11:10 | PROVIDERS: ATTEND Physician Assistant | DX: I48.91 Unspecified atrial fibrillation (principal); Z79.01 Long term (current) use of anticoagulants | CPT/HCPCS: 85610 ==

== ENCOUNTER 2020-02-06 11:59 | Outpatient (CLI) | payer BC ==
[2020-02-06 15:29] LABS: INR 2.6 (0.8-1.2); PT - PROTHROMBIN TIME 27.9 secs (9.9-12.6)
[2020-02-06 15:31] LABS: BASOPHILS # (AUTO) 0.1 10^3/uL (0.0-0.1); BASOPHILS % (AUTO) 0.8 %; EOSINOPHILS # (AUTO) 0.1 10^3/uL (0.0-0.7); EOSINOPHILS % (AUTO) 1.6 %; HGB - HEMOGLOBIN 15.3 g/dL (12.0-16.0); LYMPHOCYTES # (AUTO) 1.4 10^3/uL (1.5-3.5); LYMPHOCYTES % (AUTO) 22.5 %; MEAN CORPUSCULAR HEMOGLOBIN 30.6 pg (27.0-31.0); MEAN CORPUSCULAR HGB CONC 32.1 g/dL (32.0-36.0); MEAN CORPUSCULAR VOLUME 95.2 fL (81.0-99.0); MEAN PLATELET VOLUME 10.6 fL (7.9-10.8); MONOCYTES # (AUTO) 0.4 10^3/uL (0.0-1.0); MONOCYTES % (AUTO) 5.8 %; NEUTROPHILS # (AUTO) 4.3 10^3/uL (1.5-6.6); PLT - PLATELET COUNT 255 10^3/uL (130-450); RED CELL DISTRIBUTION WIDTH 12.9 % (12.0-15.0); WHITE BLOOD COUNT 6.3 x10^3/uL (4.8-10.8)
[2020-02-06 15:34] LABS: ALBUMIN 4.6 g/dL (3.2-5.5); ALBUMIN/GLOBULIN RATIO 1.8 (1.0-2.2); CALCIUM 9.1 mg/dL (8.5-10.3); CREATININE 0.7 mg/dL (0.4-1.0); TOTAL PROTEIN 7.2 g/dL (6.7-8.2)
== END 2020-02-06 12:00 | disposition home or self-care (01) ==
LOC: LAB.S 11:59
PROVIDERS: ATTEND Physician Assistant
DX: G47.00 Insomnia, unspecified (principal); Z79.899 Other long term (current) drug therapy; I48.91 Unspecified atrial fibrillation; Z79.01 Long term (current) use of anticoagulants; F43.21 Adjustment disorder with depressed mood
CPT/HCPCS: 36415; 80053; 85025; 85610

== ENCOUNTER 2020-03-05 13:29 | Outpatient (CLI) | payer BC | END 2020-03-05 13:30 | disposition home or self-care (01) | LOC: LAB.S 13:29 | PROVIDERS: ATTEND Physician Assistant | DX: I48.91 Unspecified atrial fibrillation (principal); Z79.01 Long term (current) use of anticoagulants | CPT/HCPCS: 85610 ==

== ENCOUNTER 2020-04-03 11:22 | Outpatient (CLI) | payer BC | END 2020-04-03 11:23 | disposition home or self-care (01) | LOC: LAB.S 11:22 | PROVIDERS: ATTEND Physician Assistant | DX: I48.91 Unspecified atrial fibrillation (principal); Z79.01 Long term (current) use of anticoagulants | CPT/HCPCS: 85610 ==

== ENCOUNTER 2020-05-01 10:59 | Outpatient (CLI) | payer BC | END 2020-05-01 11:00 | disposition home or self-care (01) | LOC: LAB.S 10:59 | PROVIDERS: ATTEND Physician Assistant | DX: I48.91 Unspecified atrial fibrillation (principal); Z79.01 Long term (current) use of anticoagulants | CPT/HCPCS: 85610 ==

== ENCOUNTER 2020-05-29 10:55 | Outpatient (CLI) | payer BC | END 2020-05-29 10:56 | disposition home or self-care (01) | LOC: LAB.S 10:55 | PROVIDERS: ATTEND Physician Assistant | DX: I48.91 Unspecified atrial fibrillation (principal); Z79.01 Long term (current) use of anticoagulants | CPT/HCPCS: 85610 ==

== ENCOUNTER 2020-06-26 08:50 | Outpatient (CLI) | payer BC ==
[2020-06-26 15:29] LABS: THYROID STIMULATING HORMONE 0.96 uIU/mL (0.34-5.60)
[2020-06-26 15:30] LABS: FREE T3 2.97 pg/mL (2.5-3.9)
== END 2020-06-26 08:51 | disposition home or self-care (01) ==
LOC: LAB.S 08:50
PROVIDERS: ATTEND Naturopath
DX: E03.9 Hypothyroidism, unspecified (principal); M81.0 Age-related osteoporosis without current pathological fracture; I48.91 Unspecified atrial fibrillation; Z79.01 Long term (current) use of anticoagulants
CPT/HCPCS: 36415; 82306; 84443; 84481; 85610

== ENCOUNTER 2020-07-10 08:15 | Outpatient (CLI) | payer BC | END 2020-07-10 08:16 | disposition home or self-care (01) | LOC: LAB.S 08:15 | PROVIDERS: ATTEND Physician Assistant | DX: I48.91 Unspecified atrial fibrillation (principal); Z79.01 Long term (current) use of anticoagulants | CPT/HCPCS: 36416; 85610 ==

== ENCOUNTER 2020-07-17 15:50 | Outpatient (CLI) | payer BC | END 2020-07-17 15:51 | disposition home or self-care (01) | LOC: LAB.S 15:50 | PROVIDERS: ATTEND Physician Assistant | DX: I48.91 Unspecified atrial fibrillation (principal); Z79.01 Long term (current) use of anticoagulants | CPT/HCPCS: 36416; 85610 ==

== ENCOUNTER 2020-08-01 12:37 | Outpatient (CLI) | payer BC | END 2020-08-01 12:38 | disposition home or self-care (01) | LOC: LAB.S 12:37 | PROVIDERS: ATTEND Physician Assistant | DX: I48.91 Unspecified atrial fibrillation (principal); Z79.01 Long term (current) use of anticoagulants | CPT/HCPCS: 36416; 85610 ==

== ENCOUNTER 2020-08-18 12:27 | Outpatient (CLI) | payer BC | END 2020-08-18 12:28 | disposition home or self-care (01) | LOC: LAB.S 12:27 | PROVIDERS: ATTEND Physician Assistant | DX: I48.91 Unspecified atrial fibrillation (principal); Z79.01 Long term (current) use of anticoagulants | CPT/HCPCS: 36416; 85610 ==

== ENCOUNTER 2020-09-21 11:00 | Outpatient (CLI) | payer BC | END 2020-09-21 11:01 | disposition home or self-care (01) | LOC: LAB.S 11:00 | PROVIDERS: ATTEND Physician Assistant | DX: I48.91 Unspecified atrial fibrillation (principal); Z79.01 Long term (current) use of anticoagulants | CPT/HCPCS: 36416; 85610 ==

== ENCOUNTER 2020-10-01 15:46 | Outpatient (CLI) | payer BC | END 2020-10-01 15:47 | disposition home or self-care (01) | LOC: LAB.S 15:46 | PROVIDERS: ATTEND Physician Assistant | DX: I48.91 Unspecified atrial fibrillation (principal); Z79.01 Long term (current) use of anticoagulants | CPT/HCPCS: 36416; 85610 ==

== ENCOUNTER 2020-10-18 15:33 | Outpatient (CLI) | payer BC | END 2020-10-18 15:34 | disposition home or self-care (01) | LOC: LAB.S 15:33 | PROVIDERS: ATTEND Physician Assistant | DX: I48.91 Unspecified atrial fibrillation (principal); Z79.01 Long term (current) use of anticoagulants | CPT/HCPCS: 36416; 85610 ==

== ENCOUNTER 2020-11-15 17:20 | Outpatient (CLI) | payer BC | END 2020-11-15 17:21 | disposition home or self-care (01) | LOC: LAB.S 17:20 | PROVIDERS: ATTEND Internal Medicine | DX: I48.91 Unspecified atrial fibrillation (principal); Z79.01 Long term (current) use of anticoagulants | CPT/HCPCS: 36416; 85610 ==

== ENCOUNTER 2020-12-07 13:34 | Outpatient (CLI) | payer BC ==
--- NOTE | 2020-12-07 18:15 | XRAY Report ---
PROCEDURE: Wrist 3 View LT INDICATIONS: LIFT WRIST CARPAL INSTABILITY TECHNIQUE: 4 views of the wrist were acquired. COMPARISON: None FINDINGS: Bones: No acute or subacute fractures or dislocations. No suspicious bony lesions. Moderate-severe degenerative changes of the left first carpometacarpal joint and triscaphe joint. Diffuse osteopenia . Scaphoid view: Scapholunate interval appears maintained. The scaphoid appears intact. Soft tissues: No suspicious soft tissue calcifications. IMPRESSION: 1. Left wrist without acute fracture or dislocation. 2. Moderate-severe osteoarthrosis of the left first carpometacarpal joint and triscaphe joint. 3. Diffuse osteopenia. If there is continued clinical concern for pathology or occult fracture, consider follow-up imaging w ith advanced imaging (CT, MRI, bone scan) if symptoms persist. Reviewed by: Nestor Lei MD on 12/07/2020 6:14 PM PDT Approved by: Nestor Lei MD on 12/07/2020 6:14 PM PDT Station ID: [id number]
== END 2020-12-07 13:35 | disposition home or self-care (01) ==
LOC: DI.S 13:34
PROVIDERS: ATTEND Orthopaedic Surgery
DX: M25.332 Other instability, left wrist (principal); M19.032 Primary osteoarthritis, left wrist; M85.88 Other specified disorders of bone density and structure, other site

== ENCOUNTER 2020-12-17 15:47 | Outpatient (CLI) | payer BC | END 2020-12-17 15:48 | disposition home or self-care (01) | LOC: LAB.S 15:47 | PROVIDERS: ATTEND Internal Medicine | DX: I48.91 Unspecified atrial fibrillation (principal); Z79.01 Long term (current) use of anticoagulants | CPT/HCPCS: 36416; 85610 ==

== ENCOUNTER 2021-01-08 12:51 | Outpatient (CLI) | payer BC ==
--- NOTE | 2021-01-08 16:58 | XRAY Report ---
PROCEDURE: Wrist 3 View LT INDICATIONS: THUMB CMC JOINT INSTABILITY TECHNIQUE: 4 views of the wrist were acquired. COMPARISON: 12/07/2020 FINDINGS: Bones: No fractures or dislocations. No suspicious bony lesions. There are severe degenerative bills ges of the triscaphe joint. There are moderate degenerative changes of the left first carpometacarpal joint. Mild degenerative changes of the left thumb metacarpophalangeal and interphalangeal joints. N o suspicious osseous erosions or periosteal reaction. Scapholunate interval is maintained. Mild diffu se osteopenia. Mild joint space narrowing of the distal radiocarpal joint. Soft tissues: No suspicious soft tissue calcifications. Chronic appearing oblong soft tissue calcif ication projecting over the dorsal aspect of the distal radius seen only on the lateral view. This is unchanged. No overlying soft tissue edema. IMPRESSION: 1. Left wrist without acute fracture or dislocation. 2. Severe osteoarthritic changes of the triscaphe joint. 3. Moderate degenerative changes of the first carpometacarpal joint. 4. Mild degenerative changes of the left thumb metacarpophalangeal and interphalangeal joints as well as the distal radiocarpal joint. Reviewed by: Nestor Lei MD on 01/08/2021 4:56 PM PST Approved by: Nestor Lei MD on 01/08/2021 4:56 PM PST Station ID: [id number]
== END 2021-01-08 12:52 | disposition home or self-care (01) ==
LOC: DI.S 12:51
PROVIDERS: ATTEND Orthopaedic Surgery
DX: M18.12 Unilateral primary osteoarthritis of first carpometacarpal joint, left hand (principal); M19.042 Primary osteoarthritis, left hand; M19.032 Primary osteoarthritis, left wrist

== ENCOUNTER 2021-01-24 15:22 | Outpatient (CLI) | payer BC | END 2021-01-24 15:23 | disposition home or self-care (01) | LOC: LAB.S 15:22 | PROVIDERS: ATTEND Internal Medicine | DX: I48.91 Unspecified atrial fibrillation (principal); Z79.01 Long term (current) use of anticoagulants | CPT/HCPCS: 36416; 85610 ==

== ENCOUNTER 2021-02-21 14:12 | Outpatient (CLI) | payer BC ==
[2021-02-21 21:14] LABS: THYROID STIMULATING HORMONE 0.96 uIU/mL (0.34-5.60)
[2021-02-21 21:15] LABS: FREE T3 4.22 pg/mL (2.5-3.9)
== END 2021-02-21 14:13 | disposition home or self-care (01) ==
LOC: LAB.S 14:12
PROVIDERS: ATTEND Naturopath
DX: I48.91 Unspecified atrial fibrillation (principal); E03.9 Hypothyroidism, unspecified; Z51.81 Encounter for therapeutic drug level monitoring; Z79.01 Long term (current) use of anticoagulants
CPT/HCPCS: 36415; 82627; 84443; 84481; 85610

== ENCOUNTER 2021-03-25 10:18 | Outpatient (CLI) | payer BC | END 2021-03-25 10:19 | disposition home or self-care (01) | LOC: LAB.S 10:18 | PROVIDERS: ATTEND Internal Medicine | DX: I48.91 Unspecified atrial fibrillation (principal); Z79.01 Long term (current) use of anticoagulants | CPT/HCPCS: 36416; 85610 ==

== ENCOUNTER 2021-04-04 11:41 | Outpatient (CLI) | payer BC | END 2021-04-04 11:42 | disposition home or self-care (01) | LOC: LAB.S 11:41 | PROVIDERS: ATTEND Internal Medicine | DX: I48.91 Unspecified atrial fibrillation (principal); Z79.01 Long term (current) use of anticoagulants | CPT/HCPCS: 36416; 85610 ==

== ENCOUNTER 2021-04-22 12:34 | Outpatient (CLI) | payer BC | END 2021-04-22 12:35 | disposition home or self-care (01) | LOC: LAB.S 12:34 | PROVIDERS: ATTEND Internal Medicine | DX: I48.91 Unspecified atrial fibrillation (principal); Z79.01 Long term (current) use of anticoagulants | CPT/HCPCS: 36416; 85610 ==

== ENCOUNTER 2021-05-29 14:17 | Outpatient (CLI) | payer BC ==
[2021-05-29 21:07] LABS: THYROID STIMULATING HORMONE 0.82 uIU/mL (0.34-5.60)
[2021-05-29 21:09] LABS: FREE T4 (FREE THYROXINE) 1.43 ng/dL (0.58-1.64)
== END 2021-05-29 14:18 | disposition home or self-care (01) ==
LOC: LAB.S 14:17
PROVIDERS: ATTEND Orthopaedic Surgery
DX: M85.80 Other specified disorders of bone density and structure, unspecified site (principal)
CPT/HCPCS: 36415; 81599; 82330; 82652; 83970; 84100; 84439; 84443

== ENCOUNTER 2021-06-03 12:17 | Outpatient (CLI) | payer BC | END 2021-06-03 12:18 | disposition home or self-care (01) | LOC: LAB.S 12:17 | PROVIDERS: ATTEND Registered Nurse | DX: I48.91 Unspecified atrial fibrillation (principal); Z79.01 Long term (current) use of anticoagulants | CPT/HCPCS: 36416; 85610 ==

== ENCOUNTER 2021-06-05 09:28 | Outpatient (CLI) | payer BC | END 2021-06-05 09:29 | disposition home or self-care (01) | LOC: LAB.S 09:28 | PROVIDERS: ATTEND Registered Nurse | DX: I48.91 Unspecified atrial fibrillation (principal); Z79.01 Long term (current) use of anticoagulants | CPT/HCPCS: 36416; 85610 ==

== ENCOUNTER 2021-06-11 12:23 | Outpatient (CLI) | payer BC ==
[2021-06-11 15:33] LABS: CREATININE 0.7 mg/dL (0.4-1.0); PHOSPHORUS 5.1 mg/dL (2.5-4.6)
== END 2021-06-11 12:24 | disposition home or self-care (01) ==
LOC: LAB.S 12:23
PROVIDERS: ATTEND Orthopaedic Surgery
DX: M85.80 Other specified disorders of bone density and structure, unspecified site (principal); E83.30 Disorder of phosphorus metabolism, unspecified
CPT/HCPCS: 36415; 82310; 82565; 84100; 84520

== ENCOUNTER 2021-06-25 15:17 | Emergency (ER) | payer BC ==
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
[2021-06-25 16:15] VITALS: BP 128/81
== END 2021-06-25 16:15 | disposition home or self-care (01) ==
LOC: ED 15:17
DX: S09.90XA Unspecified injury of head, initial encounter (principal); W22.8XXA Striking against or struck by other objects, initial encounter; Y92.009 Unspecified place in unspecified non-institutional (private) residence as the place of occurrence of the external cause; I48.91 Unspecified atrial fibrillation; Z79.01 Long term (current) use of anticoagulants
CPT/HCPCS: 99282; 99284

== ENCOUNTER 2021-08-26 10:57 | Outpatient (CLI) | payer BC ==
[2021-08-26 15:34] LABS: FREE T3 5.34 pg/mL (2.5-3.9)
[2021-08-26 15:35] LABS: THYROID STIMULATING HORMONE 1.28 uIU/mL (0.34-5.60)
[2021-08-27 05:10] LABS: VITAMIN D 25-HYDROXY 70.7 ng/mL (30.0-100.0)
== END 2021-08-26 10:58 | disposition home or self-care (01) ==
LOC: LAB.S 10:57
PROVIDERS: ATTEND Naturopath
DX: M81.0 Age-related osteoporosis without current pathological fracture (principal); E03.9 Hypothyroidism, unspecified; Z51.81 Encounter for therapeutic drug level monitoring
CPT/HCPCS: 36415; 82306; 82626; 84443; 84481

== ENCOUNTER 2021-09-04 13:17 | Outpatient (CLI) | payer BC ==
[2021-09-04 14:36] LABS: BILIRUBIN,URINE NEGATIVE (NEGATIVE); GLUCOSE, URINE (UA) NEGATIVE (NEGATIVE); KETONES,URINE (UA) NEGATIVE (NEGATIVE); LEUKOCYTE ESTERASE, URINE NEGATIVE (NEGATIVE); NITRITE,URINE NEGATIVE (NEGATIVE); OCCULT BLOOD,URINE NEGATIVE (NEGATIVE); PROTEIN,URINE NEGATIVE (NEGATIVE); UROBILINOGEN,URINE 0.2 (NORMAL) E.U./dL (NORMAL)
[2021-09-04 15:05] LABS: CLARITY,URINE CLEAR (CLEAR)
[2021-09-04 15:16] LABS: RBC,URINE 0-5 /HPF (0-5); WBC,URINE 0-3 /HPF (0-5)
[2021-09-04 15:17] LABS: BACTERIA,URINE Rare /HPF (None Seen); SQUAMOUS EPITHELIAL CELL,UR RARE Squamous (<= Few)
== END 2021-09-04 13:18 | disposition home or self-care (01) ==
LOC: LAB.S 13:17
PROVIDERS: ATTEND Registered Nurse
DX: Z85.51 Personal history of malignant neoplasm of bladder (principal)
CPT/HCPCS: 81001

== ENCOUNTER 2021-10-30 12:53 | Outpatient (CLI) | payer BC ==
[2021-10-30 20:17] LABS: FREE T3 2.87 pg/mL (2.5-3.9); THYROID STIMULATING HORMONE 1.46 uIU/mL (0.34-5.60)
== END 2021-10-30 12:54 | disposition home or self-care (01) ==
LOC: LAB.S 12:53
PROVIDERS: ATTEND Naturopath
DX: E03.9 Hypothyroidism, unspecified (principal)
CPT/HCPCS: 36415; 84403; 84443; 84481

== ENCOUNTER 2022-01-29 13:03 | Outpatient (CLI) | payer BC ==
[2022-01-29 14:52] LABS: THYROID STIMULATING HORMONE 1.58 uIU/mL (0.34-5.60)
[2022-01-29 14:53] LABS: FREE T3 5.7 pg/mL (2.5-3.9)
== END 2022-01-29 13:04 | disposition home or self-care (01) ==
LOC: LAB.S 13:03
PROVIDERS: ATTEND Naturopath
DX: E03.9 Hypothyroidism, unspecified (principal)
CPT/HCPCS: 36415; 84443; 84481

== ENCOUNTER 2022-03-20 14:41 | Outpatient (CLI) | payer BC ==
[2022-03-20 20:34] LABS: THYROID STIMULATING HORMONE 1.09 uIU/mL (0.34-5.60)
[2022-03-20 20:35] LABS: FREE T3 3.27 pg/mL (2.5-3.9)
== END 2022-03-20 14:42 | disposition home or self-care (01) ==
LOC: LAB.S 14:41
PROVIDERS: ATTEND Naturopath
DX: M81.0 Age-related osteoporosis without current pathological fracture (principal); E03.9 Hypothyroidism, unspecified; Z51.81 Encounter for therapeutic drug level monitoring
CPT/HCPCS: 36415; 82306; 82626; 82627; 84443; 84481

== ENCOUNTER 2022-05-05 08:58 | Outpatient (CLI) | payer BC ==
[2022-05-05 15:20] LABS: FREE T3 3.81 pg/mL (2.5-3.9); THYROID STIMULATING HORMONE 1.96 uIU/mL (0.34-5.60)
== END 2022-05-05 08:59 | disposition home or self-care (01) ==
LOC: LAB.S 08:58
PROVIDERS: ATTEND Naturopath
DX: E03.9 Hypothyroidism, unspecified (principal)
CPT/HCPCS: 36415; 84443; 84481

== ENCOUNTER 2023-04-10 22:57 | Emergency (ER) | payer BC ==
--- NOTE | 2023-04-10 23:19 | ED Physician Documentation ---
History of Present Illness - Stated complaint Stated Complaint: HIGH BP - Chief complaint Chief Complaint: Cardiac - History obtained from History obtained from: Patient - Additonal information Additional information: HPI from patient. Patient complains of sudden onset of episode of lightheadedness upon standing from seated position at home at approximately 9 PM tonight.The episode was self- limited and brief, resolved within less than 30 seconds. She says she did feel like she might pass out, although she does deny generalized weakness, changes in vision, nausea/vomiting, shortness of breath, chest pain. Her chief concern is that she subsequently measured her blood pressure with her home cuff and had systolic blood pressures starting in the 140s range, and subsequent rechecks got as high as 200s when she decided to come to the emergency department. She says she measures her blood pressures 3 times per week and she typically runs in the 130s systolic. She does not take any prescription medications except eliquis (for atrial fibrillation). Not diagnosed with HTN and thus does not take medication(s) for high blood pressure. 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 : None HEENT: None Psych: None Musculoskeletal: Osteoarthritis Derm: None - Past Surgical History Past Surgical History: Yes Ortho: Other - Present Medications Home Medications: Ambulatory Orders Medication Instructions Recorded Confirmed Apixaban [Eliquis] 5 mg ORAL BID 06/25/21 04/10/23 - Allergies Allergies/Adverse Reactions: Allergies Allergy/AdvReac Type Severity Reaction Status Date / Time codeine AdvReac Nausea Verified 04/10/23 23:15 - Social History Does the pt smoke?: No Smoking Status: Never smoker Does the pt drink ETOH?: Yes Does the pt have substance abuse?: No - Immunizations Immunizations are current?: Yes Immunizations: TDAP >10years/unknown - POLST Patient has POLST: No PD ED PE NORMAL - Vitals Vital signs reviewed: Yes - General General: Alert and oriented X 3, No acute distress, Well developed/nourished - Neck Neck: No JVD - Cardiac Cardiac: No murmur - Respiratory Respiratory: No respiratory distress, Clear bilaterally - Abdomen Abdomen: Soft, Non tender - Neuro Neuro: Alert and oriented X 3 Eye Opening: Spontaneous Motor: Obeys Commands Verbal: Oriented GCS Score: 15 PD ED PE EXPANDED - Cardiac Cardiac: Regular Rate, Irregularly irregular Results - Vitals Vitals: Vital Signs - 24 hr 04/10/23 04/10/23 04/10/23 23:10 23:20 23:30 Temperature 36.2 C L Heart Rate 91 77 75 Respiratory 16 16 16 Rate Blood Pressure 169/100 H 183/95 H 146/78 H O2 Saturation 100 98 98 04/11/23 01:00 Temperature Heart Rate 79 Respiratory 19 Rate Blood Pressure 159/94 H O2 Saturation 98 Oxygen O2 Source Room air - EKG (time done) No standard instances EKG releavant findings:: EKG personally interpreted by author of this note. Relevant findings are: Rate: Rate (enter#) (77) Rhythm: Atrial fibrillation [place]: Normal QRS: Normal Ischemia: Normal ST segments - Labs Labs: Laboratory Tests 04/10/23 04/10/23 23:52 23:52 WBC 5.7 RBC 4.59 Hgb 14.2 Hct 43.6 MCV 95.0 MCH 30.9 MCHC 32.6 RDW 12.5 Plt Count 246 MPV 10.0 Neut # (Auto) 3.1 Lymph # (Auto) 1.8 Howard # (Auto) 0.5 Eos # (Auto) 0.2 Baso # (Auto) 0.1 Absolute Nucleated RBC 0.00 Nucleated RBC % 0.0 Sodium 139 Potassium 3.7 Chloride 107 Carbon Dioxide 26 Anion Gap 6.0 BUN 19 Creatinine 0.5 L Estimated GFR (MDRD) 124 Glucose 110 H Calcium 9.4 - Rads (name of study) chest xray Relevant Findings:: Prelim report reviewed, See rad report PD Medical Decision Making - ED course Complexity details: reviewed results, re-evaluated patient, considered dif ferential, d/w patient ED course: Patient presents with a chief complaint/concern of high blood pressures. She notes that these are higher than her baseline, which she is basing on blood pressures that she takes every 3 days at home. Her symptoms are suggest that the initial event tonight was a brief episode of hypotension (with symptoms of lightheadedness and feeling that she might pass out), the onset of which were temporally associated with standing up from seated position. I suspect her subsequent high blood pressure readings were due to an "overcorrection" (c atecholamine release) in response to this transient dip in her blood pressure. In any event, brissa's test results do not suggest a specific nor dangerous etiology. Her initial blood pressures are elevated in ED (169/100, 183/95) but without intervention, improved to 146/78 with subsequent blood pressures in comparable range (140s-150s/70s-80s). She has unremarkable CBC, ER abdominal panel. EKG shows atrial fibrillation as expected but no ST changes. She is asymptomatic during ED stay. Normal heart rate on monitor. I explained that I will not be starting her on any blood pressure medications at this time, particularly considering that she says her blood pressures normally run 120s to 130s and that starting her on blood pressure medication for what could be a transient set of elevated blood pressures might ultimately result in hypotension; I explained that hypotension can be an immediate danger and that high blood pressure tends to cause medical problems over time. I recommended that she measure her blood pressures at least twice a day every day, recording the blood pressures and following up with her primary care provider within 2-3 weeks for reevaluation. The radiologist's interpretation chest x-ray includes finding of right lung middle lobe airspace disease/opacity. There, includes the finding is consistent with pneumonia. However, the patient has no signs nor symptoms to suggest or support a diagnosis of pneumonia (denies shortness of breath, cough, fever, chest pain. She is afebrile and has a normal white blood cell count and lungs are clear to auscultation bilaterally on my exam). Thus, I feel this is an incidental finding in relation to brissa's ED visit. Of course, this abnormality is mentioned to the patient; given no correlative signs/symptoms, I emphasized the need for her to follow-up with her primary care provider not only for brissa's symptoms and high blood pressure readings, but also for the abnormality on chest x-ray which might necessitate further study for better characterization of the abnormality. Departure - Departure Disposition: 01 Home, Self Care Clinical Impression: Lightheadedness High blood pressure Qualifiers: Hypertension type: unspecified Qualified Code(s): I10 - Essential (primary) hypertension Condition: Good Instructions: ED Hypertension Poss, ED Near Syncope Unkn Comments: There were no concerning findings on the EKG nor the blood tests. Your blood pressure readings were elevated early in your ER stay, but they gradually and consistently trended downwards without any specific intervention. The last few readings prior to discharge from the ER were, at worst, minimally above the normal range. I recommend that you take your blood pressure twice a day every day (or at least 5 days a week), writing these readings down, and then following up with your primary care provider in 2 weeks to review the readings, at which time there will be significantly more information to determine whether or not a blood pressure medication is necessary. As we discussed, there is an incidental finding on the chest x-ray: there is an area of haziness of the middle lobe of the right lung of unclear cause/significance. Without any signs/symptoms to correlate with a specific diagnosis (such as cough and shortness of breath to suggest pneumonia, for example), this is considered an incidental finding. At this time, no further emergent testing or any specific treatment is indicated based on this finding, but this is an abnormality you should most certainly mention to your primary care provider, as they might order further testing to better characterize the abnormality. Forms: PCP List
[2023-04-10 23:35] VITALS: O2SAT 98
[2023-04-10 23:57] LABS: BASOPHILS # (AUTO) 0.1 10^3/uL (0.0-0.1); BASOPHILS % (AUTO) 1.1 %; EOSINOPHILS # (AUTO) 0.2 10^3/uL (0.0-0.7); EOSINOPHILS % (AUTO) 3.9 %; HCT - HEMATOCRIT 43.6 % (37.0-47.0); HGB - HEMOGLOBIN 14.2 g/dL (12.0-16.0); LYMPHOCYTES # (AUTO) 1.8 10^3/uL (1.5-3.5); LYMPHOCYTES % (AUTO) 31.6 %; MEAN CORPUSCULAR HEMOGLOBIN 30.9 pg (27.0-31.0); MEAN CORPUSCULAR HGB CONC 32.6 g/dL (32.0-36.0); MONOCYTES # (AUTO) 0.5 10^3/uL (0.0-1.0); MONOCYTES % (AUTO) 8.4 %; NEUTROPHILS # (AUTO) 3.1 10^3/uL (1.5-6.6); NEUTROPHILS % (AUTO) 54.8 %; PLT - PLATELET COUNT 246 10^3/uL (130-450); RED BLOOD COUNT 4.59 10^6/uL (4.20-5.40); RED CELL DISTRIBUTION WIDTH 12.5 % (12.0-15.0); WHITE BLOOD COUNT 5.7 x10^3/uL (4.8-10.8)
[2023-04-11 00:15] LABS: CALCIUM 9.4 mg/dL (8.5-10.3); CREATININE 0.5 mg/dL (0.6-1.3); POTASSIUM 3.7 mmol/L (3.5-4.5)
--- NOTE | 2023-04-11 01:22 | XRAY Report ---
PROCEDURE: Chest 2V INDICATIONS: near-syncope TECHNIQUE: 2 views of the chest were acquired. COMPARISON: None. FINDINGS: Surgical changes and devices: None. Lungs and pleura: No pleural effusions or pneumothorax. Ill-defined airspace opacity involving the m edial right lower lung zone which projects over the cardiac silhouette on the lateral view. Findings are consistent with right middle lobe airspace disease. Mediastinum: Mediastinal contours appear normal. Heart size is normal. Bones and chest wall: No suspicious bony lesions. Overlying soft tissues appear unremarkable. IMPRESSION: Right middle lobe airspace disease/pneumonia. Recommend follow-up chest radiograph 4-6 weeks after treatment to document resolution of findings and /or return to baseline exam. Reviewed by: Nestor Pereyra MD on 04/11/2023 1:21 AM [facility] Approved by: Nestor Pereyra MD on 04/11/2023 1:21 AM [facility] Station ID: [id number]
[2023-04-11 01:56] VITALS: BP 162/78
== END 2023-04-11 01:40 | disposition home or self-care (01) ==
LOC: ED 22:57
DX: R42 Dizziness and giddiness (principal); R03.0 Elevated blood-pressure reading, without diagnosis of hypertension; I48.91 Unspecified atrial fibrillation; Z79.01 Long term (current) use of anticoagulants; R91.8 Other nonspecific abnormal finding of lung field
CPT/HCPCS: 36415; 80048; 85025; 93005; 99284

== ENCOUNTER 2023-04-19 14:26 | Emergency (ER) | payer MEDICARE, OTHER ==
[2023-04-19 15:09] LABS: BASOPHILS % (AUTO) 0.8 %; EOSINOPHILS # (AUTO) 0.1 10^3/uL (0.0-0.7); HCT - HEMATOCRIT 44.3 % (37.0-47.0); HGB - HEMOGLOBIN 14.5 g/dL (12.0-16.0); LYMPHOCYTES # (AUTO) 1.4 10^3/uL (1.5-3.5); LYMPHOCYTES % (AUTO) 27.9 %; MEAN CORPUSCULAR HEMOGLOBIN 30.6 pg (27.0-31.0); MEAN CORPUSCULAR HGB CONC 32.7 g/dL (32.0-36.0); MEAN CORPUSCULAR VOLUME 93.5 fL (81.0-99.0); MEAN PLATELET VOLUME 9.4 fL (7.9-10.8); MONOCYTES # (AUTO) 0.4 10^3/uL (0.0-1.0); MONOCYTES % (AUTO) 7.4 %; NEUTROPHILS % (AUTO) 61.7 %; PLT - PLATELET COUNT 255 10^3/uL (130-450); RED BLOOD COUNT 4.74 10^6/uL (4.20-5.40); RED CELL DISTRIBUTION WIDTH 12.5 % (12.0-15.0); WHITE BLOOD COUNT 4.9 x10^3/uL (4.8-10.8)
[2023-04-19 15:26] LABS: BILIRUBIN,URINE NEGATIVE (NEGATIVE); GLUCOSE, URINE (UA) NEGATIVE (NEGATIVE); KETONES,URINE (UA) NEGATIVE (NEGATIVE); LEUKOCYTE ESTERASE, URINE NEGATIVE (NEGATIVE); NITRITE,URINE NEGATIVE (NEGATIVE); OCCULT BLOOD,URINE NEGATIVE (NEGATIVE); PROTEIN,URINE NEGATIVE (NEGATIVE); UROBILINOGEN,URINE 0.2 (NORMAL) E.U./dL (NORMAL)
[2023-04-19 15:28] LABS: CLARITY,URINE CLEAR (CLEAR)
[2023-04-19 15:28] LABS: ALBUMIN 4.5 g/dL (3.2-5.5); ALBUMIN/GLOBULIN RATIO 1.8 (1.0-2.2); BILIRUBIN,TOTAL 0.7 mg/dL (0.2-1.0); CALCIUM 9.5 mg/dL (8.5-10.3); CREATININE 0.7 mg/dL (0.6-1.3); POTASSIUM 4.1 mmol/L (3.5-4.5)
--- NOTE | 2023-04-19 15:29 | ED Physician Documentation ---
History of Present Illness - Stated complaint Stated Complaint: PERSISTENT HEADACHE - Chief complaint Chief Complaint: Neuro - History obtained from History obtained from: Patient - History of Present Illness Timing: How many days ago (9) Pain level max: 0 Pain level now: 0 - Additonal information Additional information: Patient is a 63-year-old female who presents to the emergency department with a mild headache/head fullness for the past 9 days. Described as generalized, worse with movement, better with rest. No changes with light or sound. She does not take any medications at home other than Eliquis for atrial fibrillation. No focal neurological deficits. No vision changes. No history of headaches. No fevers. No cough. No congestion. 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 : None HEENT: None Psych: None Musculoskeletal: Osteoarthritis Derm: None - Past Surgical History Past Surgical History: Yes Ortho: Other - Present Medications Home Medications: Ambulatory Orders Medication Instructions Recorded Confirmed Apixaban [Eliquis] 5 mg ORAL BID 06/25/21 04/19/23 - Allergies Allergies/Adverse Reactions: Allergies Allergy/AdvReac Type Severity Reaction Status Date / Time codeine AdvReac Nausea Verified 04/19/23 14:43 - Social History Does the pt smoke?: No Smoking Status: Never smoker Does the pt drink ETOH?: Yes Does the pt have substance abuse?: No - Immunizations Immunizations are current?: Yes Immunizations: TDAP >10years/unknown - POLST Patient has POLST: No PD ED PE NORMAL - Vitals Vital signs reviewed: Yes - General General: Alert and oriented X 3, No acute distress, Well developed/nourished - HEENT HEENT: Atraumatic, PERRL, EOMI, Moist mucous membranes - Neck Neck: Supple, no meningeal sign, No JVD, No bruit - Cardiac Cardiac: RRR, Strong equal pulses - Respiratory Respiratory: No respiratory distress, Clear bilaterally - Abdomen Abdomen: Soft, Non tender, Non distended - Back Back: No CVA TTP, No spinal TTP - Derm Derm: Warm and dry - Extremities Extremities: Normal ROM s pain - Neuro Neuro: Alert and oriented X 3, truck driving 2-12 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, No motor deficit, No sensory deficit, Normal speech Eye Opening: Spontaneous Motor: Obeys Commands Verbal: Oriented GCS Score: 15 - Psych Psych: Normal mood, Normal affect Results - Vitals Vitals: Vital Signs - 24 hr 04/19/23 04/19/23 14:37 17:31 Temperature 36.4 C L Heart Rate 70 74 Respiratory 16 18 Rate Blood Pressure 163/70 H 138/75 H O2 Saturation 100 99 Oxygen O2 Source Room air - Labs Labs: Laboratory Tests 04/19/23 04/19/23 04/19/23 15:04 15:04 15:08 WBC 4.9 RBC 4.74 Hgb 14.5 Hct 44.3 MCV 93.5 MCH 30.6 MCHC 32.7 RDW 12.5 Plt Count 255 MPV 9.4 Neut # (Auto) 3.0 Lymph # (Auto) 1.4 L [place] # (Auto) 0.4 Eos # (Auto) 0.1 Baso # (Auto) 0.0 Absolute Nucleated RBC 0.00 Nucleated RBC % 0.0 Sodium 140 Potassium 4.1 Chloride 106 Carbon Dioxide 27 Anion Gap 7.0 BUN 21 H Creatinine 0.7 Estimated GFR (MDRD) 84 L Glucose 93 Calcium 9.5 Total Bilirubin 0.7 AST 16 ALT 18 Alkaline Phosphatase 74 Total Protein 7.0 Albumin 4.5 Globulin 2.5 Albumin/Globulin Ratio 1.8 Lipase 32 Urine Color Urine Clarity Urine pH Ur Specific [place] Urine Protein Urine Glucose (UA) Urine Ketones Urine Occult Blood Urine Nitrite Urine Bilirubin Urine Urobilinogen Ur Leukocyte Esterase Ur Microscopic Review Urine Culture Comments Nasal Adenovirus (PCR) NOT DETECTED Nasal B. parapertussis DNA (PCR) NOT DETECTED Nasal Coronavir 229E PCR NOT DETECTED Nasal Coronavir HKU1 PCR NOT DETECTED Nasal Coronavir NL63 PCR NOT DETECTED Nasal Coronavir OC43 PCR NOT DETECTED Nasal Enterovir/Rhinovir PCR NOT DETECTED Nasal Influenza B PCR NOT DETECTED Nasal Influenza A PCR NOT DETECTED Nasal Parainfluen 1 PCR NOT DETECTED Nasal Parainfluen 2 PCR NOT DETECTED Nasal Parainfluen 3 PCR NOT DETECTED Nasal Parainfluen 4 PCR NOT DETECTED Nasal RSV (PCR) NOT DETECTED Nasal B.pertussis DNA PCR NOT DETECTED Nasal C.pneumoniae (PCR) NOT DETECTED Hari Human Metapneumo PCR NOT DETECTED Nasal M.pneumoniae (PCR) NOT DETECTED Nasal SARS-CoV-2 (PCR) NOT DETECTED 04/19/23 15:08 WBC RBC Hgb Hct MCV MCH MCHC RDW Plt Count MPV Neut # (Auto) Lymph # (Auto) [place] # (Auto) Eos # (Auto) Baso # (Auto) Absolute Nucleated RBC Nucleated RBC % Sodium Potassium Chloride Carbon Dioxide Anion Gap BUN Creatinine Estimated GFR (MDRD) Glucose Calcium Total Bilirubin AST ALT Alkaline Phosphatase Total Protein Albumin Globulin Albumin/Globulin Ratio Lipase Urine Color LIGHT YELLOW Urine Clarity CLEAR Urine pH 6.0 Ur Specific [place] 1.010 Urine Protein NEGATIVE Urine Glucose (UA) NEGATIVE Urine Ketones NEGATIVE Urine Occult Blood NEGATIVE Urine Nitrite NEGATIVE Urine Bilirubin NEGATIVE Urine Urobilinogen 0.2 (NORMAL) Ur Leukocyte Esterase NEGATIVE Ur Microscopic Review NOT INDICATED Urine Culture Comments NOT INDICATED Nasal Adenovirus (PCR) Nasal B. parapertussis DNA (PCR) Nasal Coronavir 229E PCR Nasal Coronavir HKU1 PCR Nasal Coronavir NL63 PCR Nasal Coronavir OC43 PCR Nasal Enterovir/Rhinovir PCR Nasal Influenza B PCR Nasal Influenza A PCR Nasal Parainfluen 1 PCR Nasal Parainfluen 2 PCR Nasal Parainfluen 3 PCR Nasal Parainfluen 4 PCR Nasal RSV (PCR) Nasal B.pertussis DNA PCR Nasal C.pneumoniae (PCR) Hari Human Metapneumo PCR Nasal M.pneumoniae (PCR) Nasal SARS-CoV-2 (PCR) PD Medical Decision Making - ED course Complexity details: reviewed results, re-evaluated patient, considered differential, d/w patient, d/w family ED course: Patient with mild head fullness/headache for the past 9 days. No JVD or bruit. Her doctor sent her in today for a head CT and angiogram of the head and neck. These were ordered. They are both without acute significant findings. 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 Recommend that she follow-up with her doctor for further evaluation of this. Patient is otherwise asymptomatic. Patient is well-appearing, nontoxic. Afebrile. No indication of an emergency medical condition at this time. No other significant lab abnormalities. Patient counseled regarding signs and symptoms for which I believe and urgent re-evaluation would be necessary. Patient with good understanding of and agreement to plan and is comfortable going home at this time This document was made in part using voice recognition software. While efforts are made to proofread this document, sound alike and grammatical errors may occur. Departure - Departure Disposition: 01 Home, Self Care Clinical Impression: High blood pressure Qualifiers: Hypertension type: unspecified Qualified Code(s): I10 - Essential (primary) hypertension Headache Qualifiers: Headache type: unspecified Headache chronicity pattern: unspecified pattern Intractability: not intractable Qualified Code(s): R51.9 - Headache, unspecified Condition: Good Instructions: ED HTN Established Follow-Up: RANJANA ROSE ARNP [Primary Care Provider] - Within 1 week Comments: Your head CT and CT angiogram of your head and neck do not show any acute abnormalities. Incidentally there is a 70% atherosclerotic stenosis at the origin of the left subclavian artery. Otherwise the angiogram is unremarkable. This can be followed up with your doctor. Please continue your blood pressure medications at home. Please return if you worsen. Your respiratory panel is negative. Your labs are unremarkable as well. Please return if you worsen. PROCEDURE: CT brain without contrast INDICATIONS: headache, elevated BP TECHNIQUE: Helical axial CT of the brain was obtained without contrast and reformatted in multiple planes. Radiation dose reduction was achieved using automated exposure control or adjustment of mA and/or kV according to patient size. COMPARISON: None FINDINGS: CSF spaces: Ventricles are appropriate in size and position. No hydrocephalus. Basal cisterns unremarkable. Brain: No midline shift. No intracranial masses or hemorrhage. Brown-white matter interface is normal. Skull and face: Calvarium and skull base are unremarkable without suspicious lesion. Sinuses: Visualized sinuses and mastoids are clear. IMPRESSION: Atrophy and chronic ischemic change without intracranial hemorrhage or mass effect Reviewed by: Idris Humphries MD on 04/19/2023 3:47 PM AKST Approved by: Idris Humphries MD on 04/19/2023 3:47 PM AKST PROCEDURE: Angio Head/Neck INDICATIONS: headache x 9 d, elevated BP TECHNIQUE: Helical axial CT of the head and neck was obtained during the arterial phase of a intravenous contrast injection utilizing an angiographic protocol. Multiplanar traditional and MIP reformats were also obtained. Dose reduction techniques included either automated exposure control or adjustment of exposure parameters. COMPARISON: None. FINDINGS: Cerebral CT Angiogram: Internal carotid arteries: No acute findings. Intracranial ICA are patent with no significant stenosis. No occlusion. No aneurysm. Anterior cerebral arteries: Unremarkable. No significant stenosis. No occlusion. No aneurysm. Middle cerebral arteries: Unremarkable. No significant stenosis. No occlusion. No aneurysm. Posterior cerebral arteries: Unremarkable. No significant stenosis. No occlusion. No aneurysm. Basilar artery: Unremarkable. No significant stenosis. No occlusion. No aneurysm. Vertebral arteries: Unremarkable as visualized. Dural venous sinuses: Unremarkable given phase of enhancement. Other: Arterial phase appearance of the brain parenchyma is unremarkable. Neck CT Angiogram: Internal carotid arteries: Unremarkable. No significant stenosis. No dissection or occlusion. Common carotid arteries: Unremarkable. No significant stenosis. No dissection or occlusion. External carotid arteries: Unremarkable. No occlusion. Vertebral arteries: Unremarkable. No significant stenosis. No dissection or occlusion. Aortic Arch and Mediastinum: Partially visualized aortic arch unremarkable without evidence of aneurysm. Noncalcified atherosclerotic plaque at the origin of the left subclavian artery results in 70% stenosis. Other: Arterial phase soft tissues of the neck are unremarkable. IMPRESSION: Unremarkable CT angiogram of the head without large vessel occlusion, aneurysm or vascular maturation. No evidence of proximal ICA stenosis in the neck. Incidental 70% atherosclerotic stenosis at the origin of the left subclavian artery Reviewed by: Idris Humphries MD on 04/19/2023 4:09 PM AKST Approved by: Idris Humphries MD on 04/19/2023 4:09 PM AKST Forms: PCP List Discharge Date/Time: 04/19/23 17:32
[2023-04-19] MEDS ORDERED: IOVERSOL 320 100 ML VIAL IVP ONE (15:32)
[2023-04-19 16:05] LABS: B. PARAPERTUSSIS- RESP PCR PAN NOT DETECTED; B. PERTUSSIS- RESP PCR PANEL NOT DETECTED; C. PNEUMONIAE- RESP PCR PANEL NOT DETECTED; CORONAVIRUS 229E-RESP PCR NOT DETECTED; CORONAVIRUS HKU1-RESP PCR NOT DETECTED; CORONAVIRUS NL63-RESP PCR NOT DETECTED; CORONAVIRUS OC43-RESP PCR NOT DETECTED; HUMAN METAPNEUMOVIRUS NOT DETECTED; INFLUENZA A- RESP PCR PANEL NOT DETECTED; INFLUENZA B - RESP PCR PANEL NOT DETECTED; M. PNEUMONIAE- RESP PCR PANEL NOT DETECTED; PARAINFLUENZA VIRUS 1 NOT DETECTED; PARAINFLUENZA VIRUS 2 NOT DETECTED; PARAINFLUENZA VIRUS 3 NOT DETECTED; PARAINFLUENZA VIRUS 4 NOT DETECTED; RHINOVIRUS/ENTEROVIRUS NOT DETECTED; RSV- RESP PCR PANEL NOT DETECTED; SARS-CoV-2 -RESP PCR PANEL NOT DETECTED
[2023-04-19] MEDS: IOVERSOL 320 100 ML VIAL IVP ONE (16:26)
--- NOTE | 2023-04-19 16:48 | CT Report ---
PROCEDURE: CT brain without contrast INDICATIONS: headache, elevated BP TECHNIQUE: Helical axial CT of the brain was obtained without contrast and reformatted in multiple p lanes. Radiation dose reduction was achieved using automated exposure control or adjustment of mA and /or kV according to patient size. COMPARISON: None FINDINGS: CSF spaces: Ventricles are appropriate in size and position. No hydrocephalus. Basal cisterns unre markable. Brain: No midline shift. No intracranial masses or hemorrhage. Brown-white matter interface is norm al. Skull and face: Calvarium and skull base are unremarkable without suspicious lesion. Sinuses: Visualized sinuses and mastoids are clear. IMPRESSION: Atrophy and chronic ischemic change without intracranial hemorrhage or mass effect Reviewed by: Idris Humphries MD on 04/19/2023 3:47 PM AKST Approved by: Idris Humphries MD on 04/19/2023 3:47 PM AKST Station ID: [id number]
--- NOTE | 2023-04-19 17:10 | CT Report ---
PROCEDURE: Angio Head/Neck INDICATIONS: headache x 9 d, elevated BP TECHNIQUE: Helical axial CT of the head and neck was obtained during the arterial phase of a intrave nous contrast injection utilizing an angiographic protocol. Multiplanar traditional and MIP reformat s were also obtained. Dose reduction techniques included either automated exposure control or adjustm ent of exposure parameters. COMPARISON: None. FINDINGS: Cerebral CT Angiogram: Internal carotid arteries: No acute findings. Intracranial ICA are patent with no significant steno sis. No occlusion. No aneurysm. Anterior cerebral arteries: Unremarkable. No significant stenosis. No occlusion. No aneurysm. Middle cerebral arteries: Unremarkable. No significant stenosis. No occlusion. No aneurysm. Posterior cerebral arteries: Unremarkable. No significant stenosis. No occlusion. No aneurysm. Basilar artery: Unremarkable. No significant stenosis. No occlusion. No aneurysm. Vertebral arteries: Unremarkable as visualized. Dural venous sinuses: Unremarkable given phase of enhancement. Other: Arterial phase appearance of the brain parenchyma is unremarkable. Neck CT Angiogram: Internal carotid arteries: Unremarkable. No significant stenosis. No dissection or occlusion. Common carotid arteries: Unremarkable. No significant stenosis. No dissection or occlusion. External carotid arteries: Unremarkable. No occlusion. Vertebral arteries: Unremarkable. No significant stenosis. No dissection or occlusion. Aortic Arch and Mediastinum: Partially visualized aortic arch unremarkable without evidence of aneury sm. Noncalcified atherosclerotic plaque at the origin of the left subclavian artery results in 70% stenos is. Other: Arterial phase soft tissues of the neck are unremarkable. IMPRESSION: Unremarkable CT angiogram of the head without large vessel occlusion, aneurysm or vascular maturation . No evidence of proximal ICA stenosis in the neck. Incidental 70% atherosclerotic stenosis at the origin of the left subclavian artery Reviewed by: Idris Humphries MD on 04/19/2023 4:09 PM [place] Approved by: Idris Humphries MD on 04/19/2023 4:09 PM [facility] Station ID: [id number]
[2023-04-19 17:36] VITALS: BP 138/75; O2SAT 99
== END 2023-04-19 17:32 | disposition home or self-care (01) ==
LOC: ED 14:26
DX: R51.9 Headache, unspecified (principal); I10 Essential (primary) hypertension; I48.91 Unspecified atrial fibrillation; I70.8 Atherosclerosis of other arteries; Z79.01 Long term (current) use of anticoagulants
CPT/HCPCS: 36415; 70450; 70496; 70498; 80053; 81003; 83690; 85025; 87633; 99283; 99284; Q9967; 81001; 87086

== ENCOUNTER 2023-07-02 09:17 | Outpatient (CLI) | payer MEDICARE, OTHER ==
--- NOTE | 2023-07-02 15:53 | CT Report ---
PROCEDURE: Chest WO INDICATIONS: ABN CHEST XRAY TECHNIQUE: A CT scan of the chest was performed. Intravenous contrast media was not administered. Images were re corded and evaluated at appropriate window settings. Reformats: axial MIP of the chest, coronal and s agittal. For radiation dose reduction, the following was used: automated exposure control, adjustment of mA and/or kV according to patient size. COMPARISON: Chest radiograph 04/11/2023. FINDINGS: Image quality: Diagnostic. Chest wall and lower neck: No thyroid nodule which requires sonographic follow up. No axillary or sup raclavicular adenopathy by size. Pectus excavatum. Bilateral breast implants. Lungs and pleura: No consolidation. No pleural effusions. No pneumothorax. No suspicious pulmonary n odules which require follow up. Mediastinum: Heart size is normal. No pericardial effusion. No large vessel abnormality. No mediastin al adenopathy by size criteria. Bones: No aggressive osseous abnormality. Upper Abdomen: Unremarkable. IMPRESSION: No consolidation or suspicious pulmonary nodule. Reviewed by: Angela Wilcox MD, PhD on 07/02/2023 3:51 PM PDT Approved by: Angela Wilcox MD, PhD on 07/02/2023 3:51 PM PDT Station ID: [id number]
== END 2023-07-02 09:18 | disposition home or self-care (01) ==
LOC: DI 09:17
PROVIDERS: ATTEND Internal Medicine
DX: R93.89 Abnormal findings on diagnostic imaging of other specified body structures (principal)

== ENCOUNTER 2023-07-15 09:10 | Emergency (ER) | payer MEDICARE, OTHER ==
--- NOTE | 2023-07-15 09:55 | ED Physician Documentation ---
PD HPI HEAD INJURY - Stated complaint Stated Complaint: BUMPED HEAD - Chief complaint Chief Complaint: Trauma Hd/Nk - History obtained from History obtained from: Patient - History of Present Illness Mechanism of head injury: Blow (stumbled and struck forehead on car door frame yesterday, with dazed but no LOC.) Where head injury occurred: Home Timing - onset: Yesterday Location of injury: Front Quality of pain: Pain, Aching Associated symptoms: AMS (dazed and feeling somewhat lightheaded). 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 : None HEENT: None Psych: None Musculoskeletal: Osteoarthritis Derm: None - Past Surgical History Past Surgical History: Yes Ortho: Other - Present Medications Home Medications: Ambulatory Orders Medication Instructions Recorded Confirmed Apixaban [Eliquis] 5 mg ORAL BID 06/25/21 07/15/23 Telmisartan 20 mg PO DAILY 07/15/23 07/15/23 - Allergies Allergies/Adverse Reactions: Allergies Allergy/AdvReac Type Severity Reaction Status Date / Time codeine AdvReac Nausea Verified 07/15/23 09:29 - Social History Does the pt smoke?: No Smoking Status: Never smoker Does the pt drink ETOH?: Yes Does the pt have substance abuse?: No - Immunizations Immunizations are current?: Yes Immunizations: TDAP >10years/unknown - POLST Patient has POLST: No PD ED PE NORMAL - Vitals Vital signs reviewed: Yes - General General: Alert and oriented X 3, No acute distress, Well developed/nourished - HEENT HEENT: Other (tender right forehead. ) - Neck Neck: Supple, no meningeal sign, No adenopathy - Cardiac Cardiac: RRR - Respiratory Respiratory: No respiratory distress, Clear bilaterally - Derm Derm: Normal color, Warm and dry - Neuro Neuro: Alert and oriented X 3, surgical assistant 2-12 intact, No motor deficit, No sensory deficit, Normal speech Results - Vitals Vitals: Oxygen O2 Source Room air PD Medical Decision Making - ED course Complexity details: reviewed results (head CT without ICH.), considered differential (head injury with ALCANTAR and lightheaded continues. on DOAC.), d/w patient Departure - Departure Disposition: 01 Home, Self Care Clinical Impression: Head contusion, Post-traumatic headache, Anticoagulant long-term use Comments: Your head CT is normal without any signs of bleeding bruising or swelling. Tylenol every 4-6 hours if needed for pains. Activity as tolerated. Stay well-hydrated. Continue usual medicines. Forms: PCP List Discharge Date/Time: 07/15/23 11:21
[2023-07-15] MEDS: ACETAMINOPHEN 500 MG TABLET PO STA (10:41)
--- NOTE | 2023-07-15 11:05 | CT Report ---
PROCEDURE: Head WO INDICATIONS: struck head, on DOAC TECHNIQUE: Noncontrast 4.5 mm thick angled axial sections acquired from the foramen magnum to the vertex. For r adiation dose reduction, the following was used: automated exposure control, adjustment of mA and/or kV according to patient size. COMPARISON: 09/21/2021, 04/19/2023 FINDINGS: Image quality: Diagnostic. CSF spaces: Basal cisterns are patent. No extra-axial fluid collections. Ventricles are normal in size and shape. Brain: No midline shift. No intracranial masses or hemorrhage. Brown-white matter interface is norm al. Skull and face: Calvarium and visualized facial bones are intact, without suspicious lesions. Sinuses: Visualized sinuses and mastoids are clear. IMPRESSION: No acute intracranial pathology. No acute calvarial fracture. Reviewed by: Nestor Lei MD on 07/15/2023 11:03 AM PDT Approved by: Nestor Lei MD on 07/15/2023 11:03 AM PDT Station ID: [id number]
[2023-07-15 11:27] VITALS: BP 121/71; O2SAT 99
== END 2023-07-15 11:21 | disposition home or self-care (01) ==
LOC: ED 09:10
DX: S00.93XA Contusion of unspecified part of head, initial encounter (principal); G44.309 Post-traumatic headache, unspecified, not intractable; W22.09XA Striking against other stationary object, initial encounter; Y92.810 Car as the place of occurrence of the external cause; Z79.01 Long term (current) use of anticoagulants
CPT/HCPCS: 70450; 99283; 99284; A9270

== ENCOUNTER 2023-07-20 08:11 | Outpatient (CLI) | payer MEDICARE, OTHER | END 2023-07-20 08:12 | disposition home or self-care (01) | LOC: LAB.S 08:11 | PROVIDERS: ATTEND Naturopath | DX: Z01.89 Encounter for other specified special examinations (principal) ==

== ENCOUNTER 2023-07-21 12:47 | Outpatient (CLI) | payer MEDICARE, OTHER | END 2023-07-21 12:48 | disposition home or self-care (01) | LOC: LAB.S 12:47 | PROVIDERS: ATTEND Naturopath | DX: Z01.89 Encounter for other specified special examinations (principal) | CPT/HCPCS: 36415 ==